=== PATIENT | male | born 1955 | race Caucasian/White ===

== ENCOUNTER 2024-07-16 10:40 | Inpatient (IN) | payer MEDICARE, SELFPAY ==
[2024-07-16] VITALS (16 sets, daily range): BP systolic 114–154; BP diastolic 53–108; PULSE 80–100; RESP 16–25; TEMP 36.2–36.8; O2SAT 93–100; BMI 21.5
--- NOTE | ~2024-07-16 | CT_ITS ---
EXAMINATION: CT abdomen pelvis w con DATE: 07/16/2024 13:13 INDICATION: Gastrointestinal hemorrhage. TECHNIQUE: Computed tomography (CT) of the abdomen and pelvis was performed with 100 mL Omnipaque 350 intravenous contrast. Automated exposure control and iterative reconstruction technique were employe d. The dose-length product was 359.02 mGy-cm. COMPARISON: None. FINDINGS: There is mild emphysema. There are small pleural effusions, right worse than left. There is mild atelectasis bilaterally. Calcified right lung nodules are consistent with old granulomatous dis ease. There is left atrial enlargement of the heart. There are changes of mitral valve replacement. T here are coronary artery calcifications. No pericardial effusion. The liver, gallbladder, spleen, and adrenal glands are normal. There is a calcification the pancreas, consistent with chronic pancreatit is. There is severe atrophy of left kidney. There are cysts in the kidneys measuring up to 18 mm on t he right. There is calcified atherosclerosis of the aorta and many of the other arteries. 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 There is a 2.2 cm fusiform aneurysm of right common femoral artery. There is a 3.0 cm fusiform aneurysm of le ft common femoral artery. 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 There is a 2.5 cm fusiform aneurysm of right common iliac artery. There is total occlusion of the internal linda ac arteries. There is a 10.4 cm fat-containing mass of mixed attenuation in the right inguinal canal and scrotum. There are no dilated loops of bowel. There are no pathologically enlarged lymph nodes. T here is no free intraperitoneal fluid. There is a total right hip arthroplasty. There is severe lower lumbar spondylosis. There is mild chronic anterior wedging of multiple thoracic vertebral bodies. IMPRESSION: 1. Small pleural effusions. 2. 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 Aneurysms of the iliac and femoral arteries. 3. 10.4 cm fat-containing mass of mixed attenuation in the right inguinal canal and scrotum, consiste nt with a hernia versus liposarcoma. Reviewed, dictated and finalized at location A. IMPRESSION: 1. Small pleural effusions. 2. 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 Aneurysms of the iliac and fem oral arteries. 3. 10.4 cm fat-containing mass of mixed attenuation in the right inguinal canal and scrotum, consistent with a hernia versus liposarcoma.
--- NOTE | ~2024-07-16 | XR_ITS ---
XR chest 1V portable Ordering provider: Christy Tinoco MD History: 69 years Male with . shortness of breath . Comparison: July 16, 2024 FINDINGS: MEDIASTINUM: The cardiac silhouette is slightly enlarged. Postoperative changes in the mediastinum an d bib. Congestive bib. LUNGS: No effusions or pneumothorax. Opacification in the right lung base which is increased compared to previous study. Prominent markings in the left lower lobe. Interstitial changes seen bilaterally. A rounded opacity seen in the right lower lobe area laterally which may be focal pneumonia cannot be excluded but nodules or healing rib fractures should be considered. OTHER: No free air under the diaphragm. IMPRESSION: Right lower lobe pneumonia. Follow-up to resolution advised. Underlying pulmonary edema is not exclud ed. Reviewed, dictated and finalized at location A. IMPRESSION: Right lower lobe pneumonia. Follow-up to resolution advised. Underlying pulmona ry edema is not excluded.
--- NOTE | ~2024-07-16 | XR_ITS ---
EXAMINATION: XR chest 1V portable DATE: 07/16/2024 11:10 INDICATION: Dyspnea TECHNIQUE: frontal view of the chest was obtained. COMPARISON: None FINDINGS: Mild interstitial and airspace opacities in the bilateral lower lung zones, right greater than left. No pleural effusion or pneumothorax. Borderline heart size accounting for AP technique. Median sterno erasto wires and prior cardiac valve repair either mitral or tricuspid. IMPRESSION: 1. Mild opacities at the bilateral lower lung zones, right greater than left which could represent pn eumonia, atelectasis, mild pulmonary edema or some combination thereof. Reviewed, dictated and finalized at location B. IMPRESSION: 1. Mild opacities at the bilateral lower lung zones, right greater than left wh ich could represent pneumonia, atelectasis, mild pulmonary edema or some combin ation thereof.
--- NOTE | 2024-07-16 10:48 | ECG_ITS ---
Test Date: 2024-07-16 11:26:59 Measurements Intervals [place] Rate: 88 P: 0 GA: 0 QRS: -42 QRSD: 110 T: 130 QT: 376 QTc: 457 Interpretive Statements ATRIAL FIBRILLATION LEFT AXIS DEVIATION INTRAVENTRICULAR CONDUCTION DELAY DELAYED PRECORDIAL R/S TRANSITION ST-T WAVE ABNORMALITY IN LAT/HIGH LAT LEADS- CONSIDER ISCHEMIA ABNORMAL ECG No previous ECG available for comparison Electronically Signed On 07-16-2024 11:59:56 CDT by Catarino Pradhan D.O.
[2024-07-16 11:05] LABS: Basophils Percent Auto 0.4 % (0.2-1.2); Eosinophils Percent Auto 0.1 % (0-4.4); Immature Granulocyte Absolute 0.06 K/mm3 (0.00-0.031); Immature Granulocyte Percent A 0.8 % (0-0.5); Lymphocytes Absolute Auto 0.74 K/mm3 (0.9-3.2); Lymphocytes Percent Auto 9.3 % (18.3-44.2); Mean Corpuscular Volume 89.1 fl (80-100); Mean Platelet Volume 10.2 fl (7.4-10.4); Monocytes Absolute Auto 0.6 K/mm3 (0.1-0.6); Monocytes Percent Auto 7.8 % (2.6-8.5); Neutrophils Absolute Auto 6.5 K/mm3 (1.3-6.7); Neutrophils Percent Auto 81.6 % (45.5-73.1); Platelet Count Result 208 k/mm3 (150-375); Red Blood Count 1.84 M/mm3 (4.6-6.20); Red Cell Distribution Width 23.9 % (11.5-14.5)
[2024-07-16 11:12] LABS: Hematocrit 16.4 % (42.0-52.0); Hemoglobin 4.6 g/dL (14.0-18.0)
[2024-07-16 11:20] LABS: Partial Thromboplastin Time 62.6 Seconds (22.3-36.8); Prothrombin Time 85.9 Seconds (11.1-14.7)
[2024-07-16 11:22] LABS: Alanine Aminotransferase 10 U/L (6-50); Albumin Level 3.2 g/dL (3.5-5.1); Alkaline Phosphatase 79 U/L (38-126); Anion Gap 12 mmol/L (4-12); Aspartate Amino Transferase 14 U/L (17-59); Bilirubin,Total 0.6 mg/dL (0.2-1.3); Blood Urea Nitrogen 51 mg/dL (9-20); Calcium 8.2 mg/dL (8.4-10.2); Carbon Dioxide 17 mmol/L (22-30); Chloride 106 mmol/L (98-107); Estimated CRCL calculation 36 ml/min; Estimated Glomerular Filt Rate 38; Glucose 141 mg/dL (65-110); Potassium 4.5 mmol/L (3.4-5.0); Sodium 135 mmol/L (137-145)
[2024-07-16 11:30] LABS: Anisocytosis 2+; Microcytosis 1+ (NORMAL); Platelet Estimate Adequate (Adequate); Polychromasia 1+
[2024-07-16 11:31] LABS: Burr Cells 1+; Hypochromasia 2+
[2024-07-16 11:32] LABS: Schistocytes Rare
[2024-07-16 11:36] LABS: INR 11.1; NT Pro B Type Natriuretic Pept 8420 pg/mL (19.9-100); Troponin I 0.091 ng/mL (0.000-0.034)
[2024-07-16] MEDS: PANTOPRAZOLE SODIUM IV 40 MG VIAL 80 MG IV PUSH (11:40)
[2024-07-16 11:41] LABS: SARS-CoV-2 RNA PCR Negative (Negative)
[2024-07-16] MEDS: PHYTONADIONE ADULT INJ 10 MG in DEXTROSE 5% IN WATER 50 ML 100 MG IVPB (11:58)
[2024-07-16] MEDS: HUMAN PROTHROMBIN COMPLEX(PCC) 3,500 UNITS in PREMIXIV 0 ML 504 UNITS IV CONT (12:25)
[2024-07-16] MEDS: SODIUM CHLORIDE 0.9% IV 250 ML 30 ML IV CONT (13:21)
[2024-07-16] MEDS: TUBING, BLOOD PLUM PUMP TUBING 1 EACH XX ×2 (13:21→15:47)
[2024-07-16] MEDS: SODIUM CHLORIDE 0.9% IV 100 ML 999 ML (15:48)
--- NOTE | 2024-07-16 16:42 | PC.NURSE ---
Superintendent Circus called RN regarding H&H and troponin lab draws that haven't been drawn yet. Upon investigation RN had seen that these labs were ordered at 1244 in the ED, and had not been drawn prior to pt arriving to IMU. Rossana Sanchez NP notified of this fall-out from ED. New orders to draw H&H & troponin level after transfusion has completed.
--- NOTE | 2024-07-16 20:34 | PM.IMHP ---
H&P: HPI History of Present Illness Date/Time: 07/16/24 20:34 Chief Complaint: tarry stools Narrative: This is a 69-year-old male with past medical history significant PEG for gout, hypertension, dyslipidemia, atrial fibrillation, GERD, benign prostatic hyperplasia, mitral valve replacement. Patient presents to the emergency room due to having melena this has been ongoing for the last 3 months or so. Patient also having fatigue, dizziness, shortness of breath, palpitations, weight loss. EXAMINATION: XR chest 1V portable DATE: 07/16/2024 11:10 INDICATION: Dyspnea TECHNIQUE: frontal view of the chest was obtained. COMPARISON: None FINDINGS: Mild interstitial and airspace opacities in the bilateral lower lung zones, right greater than left. No pleural effusion or pneumothorax. Borderline heart size accounting for AP technique. Median sternotomy wires and prior cardiac valve repair either mitral or tricuspid. IMPRESSION: 1. Mild opacities at the bilateral lower lung zones, right greater than left which could represent pneumonia, atelectasis, mild pulmonary edema or some combination thereof. Review of Systems Review of Systems: tarry stool, dizziness, fatigue PMFSH Surgical History Surgical History H/O mitral valve replacement 2013 Family History Family History Father Heart problem Cerebrovascular accident Mother Alzheimer dementia Social History Social History Smoking packs per day: 0.5 Smoking cigarettes per day: 10.0 Years smoked: 53 Smoking pack-years: 26.50 Smoking status: Current every day smoker Tobacco type: cigarettes Alcohol intake: former Drinks per week: 5 Substance use: never Substance use type: does not use Do You Feel Safe in your Home?: Yes Lack of Transportation: No Lack of Food: Never True Current Housing: I Have Housing Concerned About Future Housing: No Difficulty Paying Gas/Electric Bills: No Difficulty Paying for Meds: No Currently Unemployed: No Education: High School Diploma/GED Difficulty w/ Childcare or Family Care: No Spiritual care concerns: No Meds Home Medications and Allergies Home Medications Medication Instructions Recorded Confirmed Type amlodipine 5 mg tablet 5 mg PO DAILY #90 tabs 04/29/24 07/16/24 Rx atorvastatin 80 mg tablet 80 mg PO DAILY 04/29/24 07/16/24 History digoxin 125 mcg (0.125 mg) tablet 125 mcg PO DAILY #90 tabs 04/29/24 07/16/24 Rx folic acid 1 mg tablet 1 mg PO DAILY 04/29/24 07/16/24 History metoprolol succinate 100 mg 100 mg PO DAILY #90 tabs 04/29/24 07/16/24 Rx tablet,extended release 24 hr spironolactone 25 mg tablet 25 mg PO DAILY 04/29/24 07/16/24 History tamsulosin 0.4 mg capsule 0.4 mg PO QHS #90 caps 04/29/24 07/16/24 Rx thiamine HCl (vitamin B1) 100 mg 50 mg PO DAILY 04/29/24 07/16/24 History tablet allopurinol 100 mg tablet 50 mg PO DAILY #90 tabs 06/03/24 07/16/24 Rx hydroxyzine HCl 50 mg tablet 50 mg PO QID PRN itching #120 tabs 06/03/24 07/16/24 Rx pantoprazole 40 mg tablet,delayed 40 mg PO QAM #90 tabs 06/03/24 07/16/24 Rx release ferrous sulfate 325 mg (65 mg 325 mg PO DAILY #30 tabs 06/15/24 07/16/24 Rx iron) tablet (Iron (ferrous sulfate)) trazodone 50 mg tablet 50 mg PO QHS PRN sleep #90 tabs 06/15/24 07/16/24 Rx warfarin 3 mg tablet 3 mg PO DAILY #90 tabs 06/15/24 07/16/24 Rx Allergies Allergy/AdvReac Type Severity Reaction Status Date / Time No Known Allergies Allergy Unverified 06/15/24 15:15 Vital Signs Vital Signs - 24 hr 07/16/24 10:41 07/16/24 11:43 07/16/24 11:44 Temperature 97.6 F Pulse Rate 80 91 Respiratory Rate 16 25 H Blood Pressure 147/108 H 154/81 H Pulse Oximetry 93 93 Oxygen Delivery Room Air 07/16/24 13:14 07/16/24 13:32 0
--- NOTE | 2024-07-16 21:01 | ED.GIBLEED ---
HPI - GI Bleed General Chief complaint: Shortness of Breath/Dyspnea Stated complaint: SOB with exertion Time Seen by Provider: 07/16/24 11:03 History of Present Illness HPI Narrative: 69-year-old male with a past medical history significant for previous GI bleeding, atrial fibrillation on warfarin, hypertension, hyperlipidemia. He presents today via EMS for concerns of difficulty in breathing. He states he is having dyspnea with exertion for the last few days. States he has been having dark tarry stools for the last month. He was recently admitted to another outside facility for several day hospital for similar findings and was found to have an GI bleed and anemia. According to the patient he had upper and lower endoscopy which did not show any significant bleeding and he is not sure exactly what happened during his hospital stay but he knows has not received any blood transfusions although he was close according to himself. Since his discharge he was taking iron supplementation but has not followed up with an outpatient doctor yet. Patient attributes his dark tarry stools to the iron supplementation. No blood red blood per rectum denies any abdominal pain. No chest pain, nausea, vomiting. Denies any trauma or recent injuries. Still endorses taking his warfarin but has not had his INR checked recently. Related Data Home Medications Medication Instructions Recorded Confirmed atorvastatin 80 mg tablet 80 mg PO DAILY 04/29/24 07/16/24 folic acid 1 mg tablet 1 mg PO DAILY 04/29/24 07/16/24 spironolactone 25 mg tablet 25 mg PO DAILY 04/29/24 07/16/24 thiamine HCl (vitamin B1) 100 mg 50 mg PO DAILY 04/29/24 07/16/24 tablet Allergies Allergy/AdvReac Type Severity Reaction Status Date / Time No Known Allergies Allergy Unverified 06/15/24 15:15 Review of Systems Review of Systems: As reviewed above in HPI [facility] Surgical History Surgical History H/O mitral valve replacement 2013 Family History Family History Father Heart problem Cerebrovascular accident Mother Alzheimer dementia Social History Social History Smoking packs per day: 0.5 Smoking cigarettes per day: 10.0 Years smoked: 53 Smoking pack-years: 26.50 Smoking status: Current every day smoker Tobacco type: cigarettes Alcohol intake: former Drinks per week: 5 Substance use: never Substance use type: does not use Do You Feel Safe in your Home?: Yes Lack of Transportation: No Lack of Food: Never True Current Housing: I Have Housing Concerned About Future Housing: No Difficulty Paying Gas/Electric Bills: No Difficulty Paying for Meds: No Currently Unemployed: No Education: High School Diploma/GED Difficulty w/ Childcare or Family Care: No Spiritual care concerns: No Exam Narrative: GENERAL: [Well-appearing, well-nourished, and in no acute distress.] HEAD: [Normocephalic, atraumatic.] EYES: [PERRLA and EOMI.] Conjunctiva pallor noted ENT: Nares clear, no rhinorrhea or epistaxis. Mucous membranes moist. NECK: Supple. CHEST: [Clear to auscultation. No respiratory distress.] HEART: [Regular rate and rhythm]. No murmur heard. [Normal peripheral pulses.] ABDOMEN: [Soft, nondistended], [nontender], [No rigidity or guarding] genitourinary examination reveals a very large inguinal hernia on the right side. Nontender to palpation, no overlying skin changes. Patient states this is chronic and not new, currently being evaluated for potential malignancy outpatient. EXTREMITIES: Normal range of motion. [No edema.] SKIN: Warm, dry, no rash. NEURO: [No focal deficits]. Alert and oriented [x3.] PSYCH: [Normal mood and affect.] Course Vital Signs Vital signs: Vital Signs Temperature 36.4 C 07/16/24 10:41 Pulse Rate
[2024-07-16 21:16] LABS: Hemoglobin 7.1 g/dL (14.0-18.0)
[2024-07-16 21:42] LABS: Troponin I 0.079 ng/mL (0.000-0.034)
[2024-07-17] VITALS (22 sets, daily range): BP systolic 110–157; BP diastolic 65–104; PULSE 88–139; RESP 16–29; TEMP 36.3–37.3; O2SAT 90–99
[2024-07-17 00:36] LABS: Troponin I 0.093 ng/mL (0.000-0.034)
[2024-07-17] MEDS: hydrOXYzine HCL 25 MG TABLET 50 MG PO ×2 (00:43→20:27)
[2024-07-17] MEDS: TAMSULOSIN HCL 0.4 MG CAPSULE PO ×2 (00:43→20:26)
[2024-07-17] MEDS: traZODone HCL 50 MG TABLET PO ×2 (00:43→20:26)
[2024-07-17] MEDS: NICOTINE (*PBKC) 21 MG PATCH 1 PATCH TRANSDERM ×2 (00:47→12:09)
[2024-07-17 07:44] LABS: INR 1.2; Prothrombin Time 15.2 Seconds (11.1-14.7)
--- NOTE | 2024-07-17 09:57 | PC.NURSE ---
To GI Lab per [wheelchair ]. Report given to [ROBERTO Ly ].
--- NOTE | 2024-07-17 10:00 | SUR.PREOP ---
No abx in pre-op per Dr. Savage.
[2024-07-17] MEDS: LACTATED RINGERS 1,000 ML 150 ML IV CONT (10:15)
--- NOTE | 2024-07-17 10:18 | WPDANESEPPF ---
Anes - Initial Pre Proc Eval Procedure: Operation Date: 07/17/24 15:30 Proposed Procedures p Esophagogastroduodenoscopy - Glen Leyva MD Date/Time: 07/17/24 10:18 Surgeon: Red Kaminski MD Pre Op Diagnosis: GI Bleed Patient Data Age: 69 Gender: M Height: 1.83 m Weight: 72.8 kg Last Vital Signs Temp 36.4 C 07/17/24 10:11 Pulse 91 07/17/24 10:11 Resp 19 07/17/24 10:11 BP 157/104 H 07/17/24 10:11 Pulse Ox 98 07/17/24 10:11 O2 Del Method Room Air 07/17/24 10:11 Allergies Allergy/AdvReac Type Severity Reaction Status Date / Time No Known Allergies Allergy Unverified 07/17/24 10:09 Home Medications Medication Instructions Recorded Confirmed Type amlodipine 5 mg tablet 5 mg PO DAILY #90 tabs 04/29/24 07/16/24 Rx atorvastatin 80 mg tablet 80 mg PO DAILY 04/29/24 07/16/24 History digoxin 125 mcg (0.125 mg) tablet 125 mcg PO DAILY #90 tabs 04/29/24 07/16/24 Rx folic acid 1 mg tablet 1 mg PO DAILY 04/29/24 07/16/24 History metoprolol succinate 100 mg 100 mg PO DAILY #90 tabs 04/29/24 07/16/24 Rx tablet,extended release 24 hr spironolactone 25 mg tablet 25 mg PO DAILY 04/29/24 07/16/24 History tamsulosin 0.4 mg capsule 0.4 mg PO QHS #90 caps 04/29/24 07/16/24 Rx thiamine HCl (vitamin B1) 100 mg 50 mg PO DAILY 04/29/24 07/16/24 History tablet allopurinol 100 mg tablet 50 mg PO DAILY #90 tabs 06/03/24 07/16/24 Rx hydroxyzine HCl 50 mg tablet 50 mg PO QID PRN itching #120 tabs 06/03/24 07/16/24 Rx pantoprazole 40 mg tablet,delayed 40 mg PO QAM #90 tabs 06/03/24 07/16/24 Rx release ferrous sulfate 325 mg (65 mg 325 mg PO DAILY #30 tabs 06/15/24 07/16/24 Rx iron) tablet (Iron (ferrous sulfate)) trazodone 50 mg tablet 50 mg PO QHS PRN sleep #90 tabs 06/15/24 07/16/24 Rx warfarin 3 mg tablet 3 mg PO DAILY #90 tabs 06/15/24 07/16/24 Rx Laboratory Tests 07/16/24 07/16/24 07/16/24 10:56 11:40 21:01 WBC 8.0 K/mm3 (4.5-10.0) RBC 1.84 L M/mm3 (4.6-6.20) Hgb 4.6 L* g/dL 7.1 L g/dL (14.0-18.0) (14.0-18.0) Hct 16.4 L* % 22.0 L % (42.0-52.0) (42.0-52.0) MCV 89.1 fl (80-100) MCH 25.0 L pg (26-34) MCHC 28.0 L g/dl (32-36) RDW 23.9 H % (11.5-14.5) Plt Count 208 k/mm3 (150-375) MPV 10.2 fl (7.4-10.4) Immature Gran % (Auto) 0.8 H % (0-0.5) Neut % (Auto) 81.6 H % (45.5-73.1) Lymph % (Auto) 9.3 L % (18.3-44.2) [facility] % (Auto) 7.8 % (2.6-8.5) Eos % (Auto) 0.1 % (0-4.4) Baso % (Auto) 0.4 % (0.2-1.2) Lymph # (Auto) 0.74 L K/mm3 (0.9-3.2) [facility] # (Auto) 0.6 K/mm3 (0.1-0.6) Eos # (Auto) 0.0 K/mm3 (0-0.3) Baso # (Auto) 0.0 K/mm3 (0.0-0.1) Abs Immat Gran (auto) 0.06 H K/mm3 (0.00-0.031) Absolute Neuts (auto) 6.5 K/mm3 (1.3-6.7) Absolute Nucleated RBC 0.000 K/mm3 (0.0-0.012) Nucleated RBC % 0.0 % (0.0-0.2) Platelet Estimate Adequate (Adequate) Polychromasia 1+ Hypochromasia 2+ Anisocytosis 2+ Microcytosis 1+ (NORMAL) Lenin Cells 1+ Schistocytes Rare PT 85.9 H Seconds (11.1-14.7) INR 11.1 H* APTT 62.6 H Seconds (22.3-36.8) D-Dimer 0.80 H ug/mL (<0.48) Sodium 135 L mmol/L (137-145) Potassium 4.5 mmol/L (3.4-5.0) Chloride 106 mmol/L (98-107) Carbon Dioxide 17 L mmol/L (22-30) Anion Gap 12 mmol/L (4-12) BUN 51 H mg/dL (9-20) Creatinine 1.80 H mg/dL (0.7-1.3) Estim Creat Clear Calc 36 ml/min Estimated GFR 38 L (59 - ) Glucose 141 H mg/dL (65-110) Calcium 8.2 L mg/dL (8.4-10.2) Total Bilirubin 0.6 mg/dL (0.2-1.3) AST 14 L U/L
--- NOTE | 2024-07-17 10:35 | WPDGICN ---
Assessment and Plan Assessment and plan (1) GI (gastrointestinal bleed): Code(s): K92.2 - Gastrointestinal hemorrhage, unspecified Status: Acute Assessment and Plan: probably spontaneous slow bleeding due to supratherapeutic inr similar [id number], egd and colonoscopy unremarkable will proceed with egd to check if ulcer, avm or signs of bleeding but most importantly his INR will need to be monitored closely and keep at target otherwise will have similar episodes (2) Symptomatic anemia: Code(s): D64.9 - Anemia, unspecified Status: Acute Assessment and Plan: s/p blood transfusion protonix (3) Coumadin toxicity: Code(s): T45.511A - Poisoning by anticoagulants, accidental (unintentional), initial encounter Status: Acute Assessment and Plan: reversed given gib (4) Scrotal mass: Code(s): N50.89 - Other specified disorders of the male genital organs Status: Acute Assessment and Plan: by urology (5) H/O mitral valve replacement: Code(s): Z95.2 - Presence of prosthetic heart valve Status: Acute Assessment and Plan: needs chronic anticoagulation but needs close monitoring (6) Atrial fibrillation: Code(s): I48.91 - Unspecified atrial fibrillation Status: Acute GI Consult Note Consult date/time: 07/17/24 10:35 Reason for consult: acute on chronic anemia, melena, coumadin toxicity HPI: Reese Terrell is a 69 year old male with h/o MVR, Afib on coumadin, HTN who had symptomatic anemia 02/2024- egd and colonoscopy negative at another hospital (records reviewed). He has been taking daily iron because TRANG, last hgb 10 and his stool has been dark. Here with progressive shortness of breath and fatigue, palpitations. Hgb 4.6, INR 11 and received vitamin K, admitted to hospital, given IV protonix. He received blood transfusion. 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 Aneurysms of the iliac and femoral arteries. 10.4 cm fat-containing mass of mixed attenuation in the right inguinal canal and scrotum, consistent with a hernia versus liposarcoma. Review of Systems Constitutional: Constitutional: Reports fatigue and Reports weakness Eyes: Eyes: Denies blurry vision ENT: Reports Normal hearing present Cardiovascular: Cardiovascular: Reports palpitations Respiratory: Respiratory: Reports dyspnea on exertion Gastrointestinal: Gastrointestinal: Reports melena and Denies bloating Genitourinary: Genitourinary: Denies urinary frequency Musculoskeletal: Musculoskeletal: Denies myalgias Integumentary/Breasts: Skin/Breast: Denies rash Neurologic: Denies Abnormal speech present [facility] Past Medical History Medical History (Updated 07/17/24 @ 13:58 by Glen Leyva MD) BPH (benign prostatic hyperplasia) Coumadin toxicity Symptomatic anemia Surgical History Surgical History (Updated 07/17/24 @ 13:58 by Glen Leyva MD) H/O mitral valve replacement 2013 Family History Family History Father Heart problem Cerebrovascular accident Mother Alzheimer dementia Social History Social History Smoking packs per day: 0.5 Smoking cigarettes per day: 10.0 Years smoked: 53 Smoking pack-years: 26.50 Smoking status: Current every day smoker Tobacco type: cigarettes Alcohol intake: former Drinks per week: 5 Substance use: never Substance use type: does not use Do You Feel Safe in your Home?: Yes Lack of Transportation: No Lack of Food: Never True Current Housing: I Have Housing Concerned About Future Housing: No Difficulty Paying Gas/Electric Bills: No Difficulty Paying for Meds: No Currently Unemployed: No Education: High School Diploma/GED Difficulty w/ Childcare or Family Care: No Yajaira
--- NOTE | 2024-07-17 11:18 | PC.NURSE ---
Returned from GI Lab via wheelchair. Report received from GI nurse. No issues noted.
[2024-07-17 11:44] LABS: Hematocrit 22.5 % (42.0-52.0); Hemoglobin 7.1 g/dL (14.0-18.0); Mean Corpuscular HGB Conc 31.6 g/dl (32-36); Mean Corpuscular Hemoglobin 27.8 pg (26-34); Mean Corpuscular Volume 88.2 fl (80-100); Platelet Count Result 191 k/mm3 (150-375); Red Blood Count 2.55 M/mm3 (4.6-6.20); Red Cell Distribution Width 19.9 % (11.5-14.5); White Blood Count 8.2 K/mm3 (4.5-10.0)
[2024-07-17] MEDS: DIGOXIN TAB 125 MCG TABLET PO (12:07)
[2024-07-17] MEDS: ATORVASTATIN 40 MG TABLET 80 MG PO (12:07)
[2024-07-17] MEDS: PANTOPRAZOLE 40 MG TABLET PO (12:08)
[2024-07-17] MEDS: THIAMINE HCL 50 MG TABLET PO (12:08)
[2024-07-17] MEDS: allopurinoL 50 MG TABLET PO (12:08)
[2024-07-17] MEDS: FOLIC ACID 1 MG TABLET PO (12:08)
[2024-07-17 12:15] LABS: Alanine Aminotransferase 9 U/L (6-50); Albumin Level 3.4 g/dL (3.5-5.1); Alkaline Phosphatase 80 U/L (38-126); Anion Gap 9 mmol/L (4-12); Aspartate Amino Transferase 15 U/L (17-59); Blood Urea Nitrogen 53 mg/dL (9-20); Calcium 8.6 mg/dL (8.4-10.2); Carbon Dioxide 19 mmol/L (22-30); Chloride 106 mmol/L (98-107); Estimated CRCL calculation 37 ml/min; Estimated Glomerular Filt Rate 38; Glucose 98 mg/dL (65-110); Potassium 4.2 mmol/L (3.4-5.0); Sodium 134 mmol/L (137-145)
--- NOTE | 2024-07-17 12:59 | WPDURCON ---
Assessment and Plan Assessment and plan (1) Scrotal mass: Code(s): N50.89 - Other specified disorders of the male genital organs Status: Acute Assessment and Plan: 10.4 cm fat containing mass of right inguinal canal and scrotum consistent with hernia versus liposarcoma. Reviewed imaging with Dr. Guillen. Not consistent with urologic issue and no testicular concerns. Would recommend further evaluation by General surgery. Given the chronicity of these issues, this could likely be completed as an outpatient. He may be better served at a tertiary care facility. No need for urologic follow-up at this time. Urology Consult Note HPI Date Seen: 07/17/24 Requesting Physician: Red Kaminski MD Primary Care Provider: Marianna Cisneros APRN Consult Narrative Narrative: Reese Terrell is a 69 year old male with a history of BPH on tamsulosin who is being seen in consultation for left scrotal mass. The patient is currently admitted for GI bleed and anemia. On arrival, a CT of his abdomen/pelvis with contrast was completed which demonstrated a 10.4 cm fat containing mass of mixed attenuation in the right inguinal canal and scrotum consistent with hernia versus liposarcoma. The patient reports that he has had right scrotal swelling for 4 years which has been largely unchanged though has gradually gotten larger. He denies any acute pain or other issues. States that it is uncomfortable with walking or sitting but otherwise has been very stable. He did not have any evaluation of this issue for many years, though reports about 6 months ago while living in [place] he was seen for these symptoms and had a scrotal ultrasound completed. It sounds as though he was referred to a tertiary care facility in [place] to further evaluate but he did not follow up due to transportation issues. He has now moved to this area and has been here for about 2-3 months. He recently established with a primary care provider and states that he has been trying to get some kind of follow-up for these issues but is not making any progress in doing so. He denies dysuria, hematuria, incomplete emptying, urgency, frequency, penile discharge, penile pain, scrotal wounds or drainage. He denies any personal or family history of testicular cancer or other malignancy. Review of Systems Review of Systems: All systems reviewed & are unremarkable except as noted in HPI and below PMFSH Past Medical History Medical History (Updated 07/17/24 @ 13:09 by Heidy Enrique PA-C) BPH (benign prostatic hyperplasia) Surgical History Surgical History H/O mitral valve replacement 2013 Family History Family History Father Heart problem Cerebrovascular accident Mother Alzheimer dementia Social History Social History Smoking packs per day: 0.5 Smoking cigarettes per day: 10.0 Years smoked: 53 Smoking pack-years: 26.50 Smoking status: Current every day smoker Tobacco type: cigarettes Alcohol intake: former Drinks per week: 5 Substance use: never Substance use type: does not use Do You Feel Safe in your Home?: Yes Lack of Transportation: No Lack of Food: Never True Current Housing: I Have Housing Concerned About Future Housing: No Difficulty Paying Gas/Electric Bills: No Difficulty Paying for Meds: No Currently Unemployed: No Education: High School Diploma/GED Difficulty w/ Childcare or Family Care: No Spiritual care concerns: No Meds Home Medications and Allergies Home Medications Medication Instructions Recorded Confirmed Type amlodipine 5 mg tablet 5 mg PO DAILY #90 tabs 04/29/24 07/16/24 Rx atorvastatin 80 mg tablet 80 mg PO DAILY 04/29/24 07/16/24 History digoxin 125 mcg (0.125 mg) tablet 125 mcg PO DAILY #90 tabs
[2024-07-17 14:22] LABS: Hematocrit 23.1 % (42.0-52.0); Hemoglobin 7.1 g/dL (14.0-18.0)
[2024-07-17] MEDS: IRON SUCROSE COMPLEX 200 MG, IRON SUCROSE COMPLEX 100 MG in SODIUM CHLORIDE 0.9% IV 250 ML 176.67 MG IVPB (15:13)
[2024-07-17] MEDS: FUROSEMIDE INJ 40 MG/4 ML VIAL 20 MG IV PUSH (15:30)
--- NOTE | 2024-07-17 16:09 | ECG_ITS ---
Test Date: 2024-07-17 16:25:16 Measurements Intervals [place] Rate: 126 P: 0 WV: 0 QRS: -54 QRSD: 110 T: 135 QT: 304 QTc: 442 Interpretive Statements ATRIAL FIBRILLATION WITH RAPID VENTRICULAR RESPONSE LEFT ANTERIOR FASCICULAR BLOCK ST DEVIATION AND MODERATE T-WAVE ABNORMALITY, CONSIDER LAT/HIGH LAT ISCHEMIA BASELINE WANDER- I ABNORMAL ECG Compared to ECG 07/16/2024 11:26:59 HEART RATE HAS INCREASED Left anterior fascicular block now present Electronically Signed On 07-17-2024 18:53:39 CDT by Catarino Pradhan D.O.
--- NOTE | 2024-07-17 16:31 | PC.NURSE ---
1520: Pt's heart rate has increased to 120's-130's intermittently over the last hour. Pt having 5 beat runs of V-tach at times, but is asymptomatic. Pt now complaining of shortness of breath. MD notified by RN of pt's change in condition. New order for stat lactic, CXR, and 20mg IVP Furosemide. 1609: Pt is still complaining of shortness of breath with no change in heart rate. SpO2 96% on RA. RN notified MD and requested MD to come reassess pt. New order for 12-lead EKG 1629: MD to bedside. Pt's EKG reads Afib RVR. New order for Cardiology consult, Cardizem gtt, and magnesium level.
[2024-07-17] MEDS: dilTIAZem 100 MG/100 ML 100 MG/100 ML BAG IV CONT (16:56)
[2024-07-17 16:58] LABS: Magnesium 1.9 mg/dL (1.6-2.3)
[2024-07-17 17:00] LABS: Lactic Acid Reflex 1.4 mmol/L (0.7-2.0)
--- NOTE | 2024-07-17 17:58 | PM.IMPN ---
Progress Note: A&P Assessment and Plan (1) Scrotal mass: Code(s): N50.89 - Other specified disorders of the male genital organs Status: Acute Assessment and Plan: 10.4 cm fat containing mass of right inguinal canal and scrotum consistent with hernia versus liposarcoma. Patient was evaluated byu urologic and they noted condition is not a urologic issue patient will continue outpatient follow up (already working on it with his pPC (2) GI (gastrointestinal bleed): Code(s): K92.2 - Gastrointestinal hemorrhage, unspecified Status: Acute Assessment and Plan: From supratherapeutic INR s/p EGD and no findings noted INR is normal monitor GI following (3) Atrial fibrillation: Code(s): I48.91 - Unspecified atrial fibrillation Status: Acute Assessment and Plan: Patient on Digoxin at home with warfarin warfarin restarted Now in Afib RVR On Cardizem infusion and Metoprolol 12.5mg Bid started titrate Cardizem infusion (4) Coumadin toxicity: Code(s): T45.511A - Poisoning by anticoagulants, accidental (unintentional), initial encounter Status: Acute Assessment and Plan: INR 11.1 on admission now on 1.2 (5) Symptomatic anemia: Code(s): D64.9 - Anemia, unspecified Status: Acute Assessment and Plan: received 1 unit pRBC received 300 iron sucrose monitor H and H hb 7.1 monitor (6) Pneumonia: Code(s): J18.9 - Pneumonia, unspecified organism Status: Acute Assessment and Plan: CXR showed RLL pneumonia Blood culture and MRSA screen pending Started on Rocephin, Doxycycline adn Flagyl gentle rehydration with IVF monitor Plan DVT prophylaxis on SCDs and Warfarin Subjective Date/time seen: 07/17/24 17:58 Interval history: Comfortable at bedside however patient went into Afib RVR this afternoon and was started on Cardizem infusion Review of Systems Review of Systems: tarry stool, dizziness, fatigue All systems reviewed & are unremarkable except as noted in HPI and below Exam Narrative: General: alert and comfortable Eyes: EOMI, PERRLA ENNT External ears normal, Neck is supple, no masses, Respiratory systems: Clear to auscultation Cardiovascular S1, S2, normal rhythm, no murmur, rub, or gallop; no thrill or palpable murmurs on palpation. Gastrointestinal: soft, non-tender, and non-distended abdomen with no masses; BS present Skin: no rash, lesions, ulcerations, subcutaneous nodules or induration Musculoskeletal: no abnormality and no tenderness, normal ROM Neurologic: Alert and oriented x3, non focal : scrotal swelling Objective Data Vital Signs Vital Signs: Vital Signs - 24 hr 07/16/24 18:00 07/16/24 18:56 07/16/24 19:56 Temperature 98.0 F 98.3 F Pulse Rate 93 96 92 Respiratory Rate 20 16 Blood Pressure 141/62 H 133/78 Pulse Oximetry 97 95 Oxygen Delivery 07/16/24 20:00 07/16/24 20:00 07/16/24 22:00 Temperature Pulse Rate 100 100 Respiratory Rate Blood Pressure Pulse Oximetry Oxygen Delivery Room Air 07/17/24 00:00 07/17/24 00:00 07/17/24 00:00 Temperature 97.9 F Pulse Rate 107 H 116 H Respiratory Rate 16 Blood Pressure 145/71 H Pulse Oximetry 92 Oxygen Delivery Room Air 07/17/24 02:00 07/17/24 04:00 07/17/24 04:00 Temperature Pulse Rate 100 98 Respiratory Rate Blood Pressure Pulse Oximetry Oxygen Delivery Room Air 07/17/24 04:00 07/17/24 06:00 07/17/24 07:57 Temperature 97.4 F L 98.5 F Pulse Rate 101 H 107 H 102 H Respiratory Rate 18 20 Blood Pressure 130/88 117/73 Pulse Oximetry 95 93 Oxygen Delivery 07/17/24 08:00 07/17/24 10:11 07/17/24 08:00 Temperature 97.6 F Pulse Rate 105 H 91 Respiratory Rate 19 Blood Pressure 157/104 H Pulse Oximetry 98 Oxygen Delivery Room Air Room Air 07/17/24 10:43 07/17/24 10:51 07/17/24 10:57 [place]
[2024-07-17] MEDS: SODIUM CHLORIDE 0.9% IV 1,000 ML 70 ML IV CONT (18:59)
[2024-07-17 20:16] LABS: MRSA (PCR) NOT DETECTED (NOT DETECTE)
[2024-07-17] MEDS: METOPROLOL TARTRATE 12.5 MG TABLET PO (20:26)
[2024-07-17] MEDS: cefTRIAXone 2 GM/NS 100 ML 2 GM/100 ML BAG IVPB (20:26)
[2024-07-17] MEDS: DOXYCYCLINE 100 MG/NS 100 ML 100 MG/100 ML BAG IVPB (21:05)
[2024-07-17] MEDS: metroNIDAZOLE 500 MG/ISO 100ML 500 MG/100 ML BAG 100 MG IVPB (22:05)
[2024-07-18] VITALS (25 sets, daily range): BP systolic 107–147; BP diastolic 55–96; PULSE 70–117; RESP 17–28; TEMP 36.1–37.1; O2SAT 90–96
[2024-07-18 04:31] LABS: Basophils Absolute Auto 0.1 K/mm3 (0.0-0.1); Basophils Percent Auto 0.7 % (0.2-1.2); Eosinophils Absolute Auto 0.2 K/mm3 (0-0.3); Eosinophils Percent Auto 2.3 % (0-4.4); Hematocrit 21.6 % (42.0-52.0); Immature Granulocyte Absolute 0.03 K/mm3 (0.00-0.031); Immature Granulocyte Percent A 0.4 % (0-0.5); Lymphocytes Absolute Auto 0.72 K/mm3 (0.9-3.2); Lymphocytes Percent Auto 9.4 % (18.3-44.2); Mean Corpuscular HGB Conc 30.6 g/dl (32-36); Mean Corpuscular Hemoglobin 26.5 pg (26-34); Mean Corpuscular Volume 86.7 fl (80-100); Mean Platelet Volume 9.9 fl (7.4-10.4); Monocytes Absolute Auto 0.9 K/mm3 (0.1-0.6); Monocytes Percent Auto 11.6 % (2.6-8.5); Neutrophils Absolute Auto 5.8 K/mm3 (1.3-6.7); Neutrophils Percent Auto 75.6 % (45.5-73.1); Platelet Count Result 185 k/mm3 (150-375); Red Blood Count 2.49 M/mm3 (4.6-6.20); Red Cell Distribution Width 19.2 % (11.5-14.5); White Blood Count 7.7 K/mm3 (4.5-10.0)
[2024-07-18 04:32] LABS: Hemoglobin 6.6 g/dL (14.0-18.0)
[2024-07-18 04:59] LABS: Lactic Acid Reflex 0.9 mmol/L (0.7-2.0)
[2024-07-18 05:12] LABS: Alanine Aminotransferase 7 U/L (6-50); Albumin Level 3.2 g/dL (3.5-5.1); Alkaline Phosphatase 83 U/L (38-126); Anion Gap 10 mmol/L (4-12); Aspartate Amino Transferase 12 U/L (17-59); Bilirubin,Total 0.7 mg/dL (0.2-1.3); Blood Urea Nitrogen 40 mg/dL (9-20); Calcium 8.1 mg/dL (8.4-10.2); Carbon Dioxide 19 mmol/L (22-30); Chloride 105 mmol/L (98-107); Estimated CRCL calculation 39 ml/min; Estimated Glomerular Filt Rate 40; Glucose 108 mg/dL (65-110); Magnesium 1.7 mg/dL (1.6-2.3); Potassium 3.1 mmol/L (3.4-5.0); Sodium 134 mmol/L (137-145)
[2024-07-18] MEDS: metroNIDAZOLE 500 MG/ISO 100ML 500 MG/100 ML BAG 100 MG IVPB ×3 (05:45→22:10)
--- NOTE | 2024-07-18 07:36 | WPDANESPN ---
Anes - Prog Note Post-Op Date/Time: 07/18/24 07:36 Cardiovascular status: normal Respiratory status: normal Airway patency: baseline Mental status: baseline Post-Op hydration status: normal Vital Signs: Last Vital Signs Temp 36.8 C 07/18/24 04:00 Pulse 100 07/18/24 06:10 Resp 18 07/18/24 04:00 BP 112/76 07/18/24 06:10 Pulse Ox 90 07/18/24 04:00 O2 Del Method Room Air 07/18/24 04:00 Pain Score (VAS): 0/10 I/O: Intake & Output 07/17/24 07/17/24 07/18/24 15:59 23:59 07:59 Intake Total 200 830.3 480.9 Output Total 500 800 800 Balance -300 30.3 -319.1 Laboratory Tests 07/18/24 04:19 07/18/24 04:19 07/16/24 07/17/24 07/17/24 11:40 07:23 14:00 WBC 8.2 RBC 2.55 L Hgb 7.1 L 7.1 L Hct 22.5 L 23.1 L MCV 88.2 MCH 27.8 D MCHC 31.6 L RDW 19.9 H Plt Count 191 MPV 10.0 Immature Gran % (Auto) Neut % (Auto) Lymph % (Auto) [place] % (Auto) Eos % (Auto) Baso % (Auto) Lymph # (Auto) [place] # (Auto) Eos # (Auto) Baso # (Auto) Abs Immat Gran (auto) Absolute Neuts (auto) Absolute Nucleated RBC Nucleated RBC % PT 15.2 H D INR 1.2 Sodium 134 L Potassium 4.2 Chloride 106 Carbon Dioxide 19 L Anion Gap 9 BUN 53 H Creatinine 1.80 H Estim Creat Clear Calc 37 Estimated GFR 38 L Glucose 98 Lactic Acid Calcium 8.6 Magnesium Total Bilirubin 1.0 AST 15 L ALT 9 Alkaline Phosphatase 80 Total Protein 6.0 L Albumin 3.4 L Nasal MRSA (PCR) Crossmatch See Detail 07/17/24 07/17/24 07/17/24 16:21 16:27 18:58 WBC RBC Hgb Hct MCV MCH MCHC RDW Plt Count MPV Immature Gran % (Auto) Neut % (Auto) Lymph % (Auto) [place] % (Auto) Eos % (Auto) Baso % (Auto) Lymph # (Auto) [place] # (Auto) Eos # (Auto) Baso # (Auto) Abs Immat Gran (auto) Absolute Neuts (auto) Absolute Nucleated RBC Nucleated RBC % PT INR Sodium Potassium Chloride Carbon Dioxide Anion Gap BUN Creatinine Estim Creat Clear Calc Estimated GFR Glucose Lactic Acid 1.4 Calcium Magnesium 1.9 Total Bilirubin AST ALT Alkaline Phosphatase Total Protein Albumin Nasal MRSA (PCR) Not detected Crossmatch 07/18/24 04:19 WBC 7.7 RBC 2.49 L Hgb 6.6 L* Hct 21.6 L MCV 86.7 MCH 26.5 MCHC 30.6 L RDW 19.2 H Plt Count 185 MPV 9.9 Immature Gran % (Auto) 0.4 Neut % (Auto) 75.6 H Lymph % (Auto) 9.4 L [place] % (Auto) 11.6 H Eos % (Auto) 2.3 Baso % (Auto) 0.7 Lymph # (Auto) 0.72 L [place] # (Auto) 0.9 H Eos # (Auto) 0.2 Baso # (Auto) 0.1 Abs Immat Gran (auto) 0.03 Absolute Neuts (auto) 5.8 Absolute Nucleated RBC 0.000 Nucleated RBC % 0.0 PT INR Sodium 134 L Potassium 3.1 L Chloride 105 Carbon Dioxide 19 L Anion Gap 10 BUN 40 H D Creatinine 1.70 H Estim Creat Clear Calc 39 Estimated GFR 40 L Glucose 108 Lactic Acid 0.9 Calcium 8.1 L Magnesium 1.7 Total Bilirubin 0.7 AST 12 L ALT 7 Alkaline Phosphatase 83 Total Protein 6.0 L Albumin 3.2 L Nasal MRSA (PCR) Crossmatch Post-procedural complaints: none Patient Feedback: Patient satisfied with anesthetic care.
[2024-07-18] MEDS: FERROUS SULFATE 325 MG TABLET DR BY MOUTH (08:34)
[2024-07-18] MEDS: PANTOPRAZOLE 40 MG TABLET PO (08:34)
[2024-07-18] MEDS: allopurinoL 50 MG TABLET PO (08:34)
[2024-07-18] MEDS: THIAMINE HCL 50 MG TABLET PO (08:34)
[2024-07-18] MEDS: FOLIC ACID 1 MG TABLET PO (08:34)
[2024-07-18] MEDS: ATORVASTATIN 40 MG TABLET 80 MG PO (08:35)
[2024-07-18] MEDS: hydrOXYzine HCL 25 MG TABLET 50 MG PO ×2 (08:35→20:25)
[2024-07-18] MEDS: DIGOXIN TAB 125 MCG TABLET PO (08:35)
[2024-07-18] MEDS: NICOTINE (*PBKC) 21 MG PATCH 1 PATCH TRANSDERM (08:36)
[2024-07-18] MEDS: DOXYCYCLINE 100 MG/NS 100 ML 100 MG/100 ML BAG IVPB ×2 (08:36→20:54)
[2024-07-18] MEDS: METOPROLOL TARTRATE 25 MG TABLET PO (08:39)
--- NOTE | 2024-07-18 10:13 | PM.CNCAR ---
Assessment and Plan Assessment and plan (1) H/O mitral valve replacement: Code(s): Z95.2 - Presence of prosthetic heart valve Status: Acute (2) Coumadin toxicity: Code(s): T45.511A - Poisoning by anticoagulants, accidental (unintentional), initial encounter Status: Acute (3) Atrial fibrillation: Code(s): I48.91 - Unspecified atrial fibrillation Status: Acute (4) Hx of CABG: Code(s): Z95.1 - Presence of aortocoronary bypass graft Status: Acute Plan this is a 69-year-old man with a somewhat complex history, no recent follow-up here. We noted he has the bioprosthetic mitral valve replacement and vein graft to his RPDA and OM branch that were done 10 years ago. He also has atrial fibrillation which appears to be chronic at this time. In the setting of chronic atrial fib and profound anemia he as expected had rapid ventricular response upon arrival here. He is otherwise hemodynamically stable. I am going to recommend transitioning him back to his baseline regimen of metoprolol and digoxin for rate control since this has been effective for him prior to admission. The reason for his rapid ventricular response is the anemia, not a new cardiac issue. Anticoagulation should be discontinued at this time with the risks being much higher than the benefits given his profound, life-threatening bleeding. It is possible he could be a candidate for left atrial appendage occlusion procedure in the future and I did discuss this with him as well at some length. Will follow him with you while he is in the hospital but at this point I do not believe we need to be concerned about a new cardiac pathology. It is clear that he was open supratherapeutic in his INR but I do not believe we should be comfortable resuming anticoagulation in this setting Stevo Liu MD [facility] History of Present Illness History of Present Illness Consult date/time: 07/18/24 10:13 Reason For Visit: GI Bleed Narrative: This is a 69-year-old man who I am seeing at the request of the hospitalist to assist with management of his atrial fibrillation. The patient is unknown to me prior to this consultation. He was admitted to the hospital 2 days ago with apparent melanotic stool, GI bleeding and profound anemia with a hemoglobin of 4.6. He had super therapeutic INR, on Coumadin with an INR of 11 and this was reversed with vitamin K. he was also transfused red cell volume and was seen by GI customer relations consultant. His hemoglobin level improved to over 7 today it is down to 6.6 again. He is not having any active bleeding and appears to be comfortable at this time. The patient has a history of coronary disease, valvular heart disease and atrial fibrillation. He recently moved to this area from [place] and we do not have any recent records regarding his cardiac status other than an echocardiogram from December of this year from his physician in [place]. The patient has a history apparently dating back to September of 2014 when he was seen in the hospital elsewhere with mitral valve endocarditis he presented with a history of several months of illness weight loss fever and was found to have mitral valve endocarditis. 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 In any event he underwent surgery involving a 31 mm magna pericardial valve and a bypass operation with saphenous vein grafts placed to the 1st OM as well as to the DA. He did have atrial fibrillation following his surgery and pony edger was involved in his care who performed a cardioversion and had him on amiodarone as and systemic anticoagulation. The last time he saw the surgeon here in [place] was back in 2014 and at that time he was apparently in sinus rhythm. It sounds like in the intervening 9 years he
[2024-07-18] MEDS: METOPROLOL SUCCINATE EXT REL 50 MG TABCR PO (11:42)
[2024-07-18] MEDS: SODIUM CHLORIDE 0.9% IV 250 ML 30 ML IV CONT (11:44)
--- NOTE | 2024-07-18 13:17 | PM.IMPN ---
Progress Note: A&P Assessment and Plan (1) Scrotal mass: Code(s): N50.89 - Other specified disorders of the male genital organs Status: Acute Assessment and Plan: 10.4 cm fat containing mass of right inguinal canal and scrotum consistent with hernia versus liposarcoma. Patient was evaluated byu urologic and they noted condition is not a urologic issue patient will continue outpatient follow up (already working on it with his pPC (2) GI (gastrointestinal bleed): Code(s): K92.2 - Gastrointestinal hemorrhage, unspecified Status: Acute Assessment and Plan: From supratherapeutic INR s/p EGD and no findings noted INR is normal Patient stated he does not have means to go for regular INR check up, we will try to swtich him to [facility] accounts payable payroll coordinator consulted GI osman noted and appreciate his input (3) Atrial fibrillation: Code(s): I48.91 - Unspecified atrial fibrillation Status: Acute Assessment and Plan: Patient on Digoxin at home with warfarin Now rate controlled cardiology recommended discontinued anticoagulation and will evaluate for watchman device continue Digoxin and Metoprolol 25mg bid (4) Coumadin toxicity: Code(s): T45.511A - Poisoning by anticoagulants, accidental (unintentional), initial encounter Status: Acute Assessment and Plan: INR 11.1 on admission now on 1.2 no AC, for watchman device (5) Symptomatic anemia: Code(s): D64.9 - Anemia, unspecified Status: Acute Assessment and Plan: received 1 unit pRBC received 500 iron sucrose monitor H and H hb 6.6 transfuse 1 unit and 300mg IV iron monitor (6) Pneumonia: Code(s): J18.9 - Pneumonia, unspecified organism Status: Acute Assessment and Plan: CXR showed RLL pneumonia Blood culture and MRSA screen pending Day 2 on Rocephin, Doxycycline adn Flagyl monitor Plan DVT prophylaxis on SCDs, due to GI bleed Subjective Date/time seen: 07/18/24 13:17 Interval history: Comfortable at bedside Afib rate controlled however hb 6.6 today will monitor one more night Review of Systems Review of Systems: tarry stool, dizziness, fatigue All systems reviewed & are unremarkable except as noted in HPI and below Exam Narrative: General: alert and comfortable Eyes: EOMI, PERRLA ENNT External ears normal, Neck is supple, no masses, Respiratory systems: Clear to auscultation Cardiovascular S1, S2, normal rhythm, no murmur, rub, or gallop; no thrill or palpable murmurs on palpation. Gastrointestinal: soft, non-tender, and non-distended abdomen with no masses; BS present Skin: no rash, lesions, ulcerations, subcutaneous nodules or induration Musculoskeletal: no abnormality and no tenderness, normal ROM Neurologic: Alert and oriented x3, non focal : scrotal swelling Const: General: comfortable, no acute distress, well developed, alert, awake, average body habitus and underweight Nutritional Appearance: average body habitus and underweight Orientation/consciousness: patient oriented x3 Other: generalized pallor HENMT: Head: normal to inspection, normocephalic and atraumatic Ears: hearing grossly normal bilaterally Face/Nose/Sinus: normal facial exam Face and sinus: normal facial exam Eyes: General: appearance normal, both eyes and all related structures Pupils: Equal, round and reactive pupils present EOM: EOMs intact bilaterally Neck: Neck: full ROM, no lymphadenopathy and no JVD Thyroid: thyroid normal Lymphatic: no lymphadenopathy noted Resp: Effort & Inspection: normal respiratory effort and able to speak in complete sentences Auscultation: clear to auscultation bilaterally Cardio: Jugular venous distension: no JVD Rate: regular rate Rhythm: regular rhythm Heart sounds: S1 normal heart sound present and S2 normal heart sound present : General: Yes deferred Skin: Rashes: no rashes
--- NOTE | 2024-07-18 13:58 | WPDGIPROGNO ---
Progress Note: A&P Assessment and Plan (1) Symptomatic anemia: Code(s): D64.9 - Anemia, unspecified Status: Acute Assessment and Plan: egd normal probably spontaneous bleeding from coumadin toxicity (inr 11 on presentation), corrected now protonix daily keep hgb>7 will follow as needed (2) GI (gastrointestinal bleed): Code(s): K92.2 - Gastrointestinal hemorrhage, unspecified Status: Acute (3) Coumadin toxicity: Code(s): T45.511A - Poisoning by anticoagulants, accidental (unintentional), initial encounter Status: Acute Assessment and Plan: cardiology to decide if will need to be back on anticoagulation- this is second presentation with symptomatic anemia, recent colonoscopy negative (4) Atrial fibrillation: Code(s): I48.91 - Unspecified atrial fibrillation Status: Acute (5) Pneumonia: Code(s): J18.9 - Pneumonia, unspecified organism Status: Acute Subjective Date/time seen: 07/18/24 13:58 Interval history: egd normal yesterday getting one more unit prbc today Review of Systems Review of Systems: All systems reviewed & are unremarkable except as noted in HPI and below Exam Const: General: no acute distress HENMT: Face/Nose/Sinus: Normal nares present Eyes: General: appearance normal, both eyes and all related structures Neck: Neck: supple Resp: Auscultation: clear to auscultation bilaterally Cardio: Rate: regular rate Rhythm: regular rhythm GI: Inspection: non-distended GI Palp: Yes Soft to palpation and No Tenderness to palpation present (GI) Auscultation: normal bowel sounds : Other: rt scrotum edema Skin: Other: pallor Neuro: Speech: normal speech Motor exam (neuro): 5/5 motor strength present throughout Extrem: General: normal to inspection Psych: Mental Status: mental status grossly normal Objective Data Vital Signs Vital Signs: Vital Signs - 24 hr 07/17/24 14:00 07/17/24 16:00 07/17/24 16:00 Temperature 98.8 F Pulse Rate 113 H 130 H Respiratory Rate 22 H Blood Pressure 129/80 Pulse Oximetry 90 Oxygen Delivery Room Air 07/17/24 16:56 07/17/24 16:00 07/17/24 18:00 Temperature Pulse Rate 133 H 123 H 139 H Respiratory Rate Blood Pressure 129/80 131/65 Pulse Oximetry Oxygen Delivery 07/17/24 18:00 07/17/24 18:00 07/17/24 20:00 Temperature 99.1 F Pulse Rate 139 H 114 H 107 H Respiratory Rate 16 Blood Pressure 131/65 139/87 Pulse Oximetry 90 Oxygen Delivery 07/17/24 20:26 07/17/24 20:00 07/17/24 20:00 Temperature Pulse Rate 111 H 102 H Respiratory Rate Blood Pressure Pulse Oximetry Oxygen Delivery Room Air 07/17/24 22:00 07/17/24 23:59 07/18/24 00:00 Temperature 97.7 F Pulse Rate 88 104 H Respiratory Rate 20 Blood Pressure 115/75 Pulse Oximetry 91 Oxygen Delivery Room Air 07/18/24 04:00 07/18/24 00:00 07/18/24 02:00 Temperature 98.2 F Pulse Rate 100 100 95 Respiratory Rate 18 Blood Pressure 112/75 Pulse Oximetry 90 Oxygen Delivery 07/18/24 04:00 07/18/24 05:19 07/18/24 04:00 Temperature Pulse Rate 84 90 Respiratory Rate Blood Pressure Pulse Oximetry Oxygen Delivery Room Air 07/18/24 06:00 07/18/24 06:10 07/18/24 06:00 Temperature Pulse Rate 88 100 96 Respiratory Rate Blood Pressure 112/76 112/68 Pulse Oximetry Oxygen Delivery 07/17/24 20:00 07/17/24 22:00 07/18/24 00:00 Temperature Pulse Rate 133 H 127 H 108 H Respiratory Rate Blood Pressure 113/75 Pulse Oximetry Oxygen Delivery 07/18/24 02:00 07/18/24 04:00 07/18/24 08:00 Temperature 97.9 F Pulse Rate 103 H 91 101 H Respiratory Rate 24 H Blood Pressure 108/69 147/96 H Pulse Oximetry 93 Oxygen Delivery 07/18/24 08:35 07/18/24 08:39 07/18/24 10:00 Temperature 97.7 F Pulse Rate 117 H 96 78 Respiratory Rate 20 Blood Pressure 126
[2024-07-18] MEDS: IRON SUCROSE COMPLEX 200 MG in SODIUM CHLORIDE 0.9% IV 100 ML 220 MG IVPB (14:20)
[2024-07-18] MEDS: FAMOTIDINE 20 MG TABLET PO (14:21)
[2024-07-18] MEDS: cefTRIAXone 2 GM/NS 100 ML 2 GM/100 ML BAG IVPB (20:21)
[2024-07-18] MEDS: TAMSULOSIN HCL 0.4 MG CAPSULE PO (20:26)
[2024-07-18] MEDS: traZODone HCL 50 MG TABLET PO (20:26)
[2024-07-18] MEDS: ALPRAZolam (*CRX) 0.25 MG TABLET PO (23:54)
[2024-07-19] VITALS (12 sets, daily range): BP systolic 115–148; BP diastolic 62–90; PULSE 68–107; RESP 18–20; TEMP 36.6; O2SAT 92–96
[2024-07-19 02:52] LABS: Basophils Percent Auto 0.4 % (0.2-1.2); Eosinophils Absolute Auto 0.3 K/mm3 (0-0.3); Eosinophils Percent Auto 3.8 % (0-4.4); Hematocrit 24.1 % (42.0-52.0); Hemoglobin 7.4 g/dL (14.0-18.0); Immature Granulocyte Absolute 0.05 K/mm3 (0.00-0.031); Immature Granulocyte Percent A 0.7 % (0-0.5); Lymphocytes Absolute Auto 1.08 K/mm3 (0.9-3.2); Lymphocytes Percent Auto 14.3 % (18.3-44.2); Mean Corpuscular HGB Conc 30.7 g/dl (32-36); Mean Corpuscular Hemoglobin 26.8 pg (26-34); Mean Corpuscular Volume 87.3 fl (80-100); Mean Platelet Volume 9.8 fl (7.4-10.4); Monocytes Percent Auto 13.5 % (2.6-8.5); Neutrophils Absolute Auto 5.1 K/mm3 (1.3-6.7); Neutrophils Percent Auto 67.3 % (45.5-73.1); Nucleated Red Blood Cells Perc 0.4 % (0.0-0.2); Platelet Count Result 176 k/mm3 (150-375); Red Blood Count 2.76 M/mm3 (4.6-6.20); Red Cell Distribution Width 18.6 % (11.5-14.5); White Blood Count 7.6 K/mm3 (4.5-10.0)
[2024-07-19 03:13] LABS: Alanine Aminotransferase 6 U/L (6-50); Albumin Level 3.1 g/dL (3.5-5.1); Alkaline Phosphatase 94 U/L (38-126); Anion Gap 7 mmol/L (4-12); Aspartate Amino Transferase 12 U/L (17-59); Bilirubin,Total 0.6 mg/dL (0.2-1.3); Blood Urea Nitrogen 28 mg/dL (9-20); Calcium 8.1 mg/dL (8.4-10.2); Carbon Dioxide 20 mmol/L (22-30); Chloride 108 mmol/L (98-107); Estimated CRCL calculation 39 ml/min; Estimated Glomerular Filt Rate 40; Glucose 103 mg/dL (65-110); Magnesium 1.7 mg/dL (1.6-2.3); Potassium 3.2 mmol/L (3.4-5.0); Sodium 135 mmol/L (137-145)
[2024-07-19] MEDS: metroNIDAZOLE 500 MG/ISO 100ML 500 MG/100 ML BAG 100 MG IVPB (05:35)
[2024-07-19] MEDS: DOXYCYCLINE 100 MG/NS 100 ML 100 MG/100 ML BAG IVPB (09:03)
[2024-07-19] MEDS: METOPROLOL SUCCINATE EXT REL 100 MG TABCR PO (09:03)
[2024-07-19] MEDS: allopurinoL 50 MG TABLET PO (09:03)
[2024-07-19] MEDS: DIGOXIN TAB 125 MCG TABLET PO (09:04)
[2024-07-19] MEDS: FERROUS SULFATE 325 MG TABLET DR BY MOUTH (09:04)
[2024-07-19] MEDS: FOLIC ACID 1 MG TABLET PO (09:04)
[2024-07-19] MEDS: PANTOPRAZOLE 40 MG TABLET PO (09:04)
[2024-07-19] MEDS: ATORVASTATIN 40 MG TABLET 80 MG PO (09:04)
[2024-07-19] MEDS: THIAMINE HCL 50 MG TABLET PO (09:04)
[2024-07-19] MEDS: NICOTINE (*PBKC) 21 MG PATCH 1 PATCH TRANSDERM (10:00)
[2024-07-19 10:18] LABS: Basophils Absolute Auto 0.1 K/mm3 (0.0-0.1); Basophils Percent Auto 0.7 % (0.2-1.2); Eosinophils Absolute Auto 0.2 K/mm3 (0-0.3); Eosinophils Percent Auto 3.3 % (0-4.4); Hematocrit 24.5 % (42.0-52.0); Hemoglobin 7.5 g/dL (14.0-18.0); Immature Granulocyte Absolute 0.05 K/mm3 (0.00-0.031); Immature Granulocyte Percent A 0.7 % (0-0.5); Lymphocytes Absolute Auto 0.87 K/mm3 (0.9-3.2); Lymphocytes Percent Auto 12.1 % (18.3-44.2); Mean Corpuscular HGB Conc 30.6 g/dl (32-36); Mean Corpuscular Hemoglobin 27.2 pg (26-34); Mean Corpuscular Volume 88.8 fl (80-100); Mean Platelet Volume 9.7 fl (7.4-10.4); Monocytes Absolute Auto 0.8 K/mm3 (0.1-0.6); Monocytes Percent Auto 11.4 % (2.6-8.5); Neutrophils Absolute Auto 5.2 K/mm3 (1.3-6.7); Neutrophils Percent Auto 71.8 % (45.5-73.1); Platelet Count Result 183 k/mm3 (150-375); Red Blood Count 2.76 M/mm3 (4.6-6.20); Red Cell Distribution Width 18.8 % (11.5-14.5); White Blood Count 7.2 K/mm3 (4.5-10.0)
--- NOTE | 2024-07-19 10:27 | PM.PNCARD ---
Progress Note: A&P Assessment and Plan (1) Hx of CABG: Code(s): Z95.1 - Presence of aortocoronary bypass graft Status: Acute (2) H/O mitral valve replacement: Code(s): Z95.2 - Presence of prosthetic heart valve Status: Acute (3) Atrial fibrillation: Code(s): I48.91 - Unspecified atrial fibrillation Status: Acute Plan 69-year-old man with chronic atrial fibrillation, previous mitral valve replacement for treatment of severe MR caused by endocarditis and incidental 2 vessel CABG at the time of his mitral valve operation. He entered the hospital profoundly anemic and with over anticoagulation. That has improved and his hemoglobin while still low is much more acceptable. He appears to be hemodynamically stable enough for discharge. Metoprolol 100 mg per day is providing adequate heart rate control. I will see him for follow-up in the office and discuss arranging for left atrial appendage occlusion procedure since he is not a safe candidate for anticoagulation. Stevo Liu MD [facility] Subjective Date/time seen: date of vqvpewr70/22/24 10:27 Interval history: follow-up visit in this 69-year-old man with: History of coronary artery disease mitral valve endocarditis and chronic atrial fibrillation. Patient underwent mitral valve replacement and 2 vessel coronary bypass grafting 10 years ago. He enters the hospital with severe GI bleeding in the setting of Coumadin toxicity. He is feeling better INR has normalized and his hemoglobin is still low although acceptable following transfusion. Exam Const: General: comfortable and no acute distress HENMT: Mouth: Yes moist mucous membranes Eyes: Sclera: sclerae normal Neck: Neck: supple Resp: Effort & Inspection: normal respiratory effort Auscultation: clear to auscultation bilaterally Cardio: Rate: regular rate Rhythm: abnormal rhythm irregularly irregular GI: GI Palp: Yes Soft to palpation Auscultation: normal bowel sounds Skin: General skin exam: normal color Neuro: Other: Alert and oriented x3 Extrem: General: normal to inspection Objective Data Vital Signs Vital Signs: Vital Signs - 24 hr 07/18/24 11:38 07/18/24 11:42 07/18/24 11:30 Temperature 36.8 C Pulse Rate 74 80 74 Respiratory Rate 18 Blood Pressure 142/70 H 142/70 H Pulse Oximetry 95 Oxygen Delivery 07/18/24 11:55 07/18/24 12:00 07/18/24 12:55 Temperature 36.7 C 36.8 C Pulse Rate 74 70 Respiratory Rate 17 24 H Blood Pressure 134/73 110/56 L Pulse Oximetry 95 95 Oxygen Delivery Room Air 07/18/24 12:00 07/18/24 14:00 07/18/24 13:55 Temperature 36.7 C Pulse Rate 83 74 79 Respiratory Rate 28 H Blood Pressure 140/77 Pulse Oximetry 92 Oxygen Delivery 07/18/24 14:22 07/18/24 16:00 07/18/24 16:00 Temperature 36.1 C L 36.9 C Pulse Rate 84 77 Respiratory Rate 20 20 Blood Pressure 120/65 130/73 Pulse Oximetry 94 90 Oxygen Delivery Room Air 07/18/24 16:00 07/18/24 18:00 07/18/24 20:35 Temperature 37.1 C Pulse Rate 73 79 84 Respiratory Rate 20 Blood Pressure 137/60 Pulse Oximetry 94 Oxygen Delivery 07/18/24 20:00 07/18/24 20:00 07/18/24 22:00 Temperature Pulse Rate 79 76 Respiratory Rate Blood Pressure Pulse Oximetry Oxygen Delivery Room Air 07/18/24 23:32 07/19/24 00:00 07/19/24 00:00 Temperature 36.4 C Pulse Rate 76 81 Respiratory Rate 20 Blood Pressure 107/55 L Pulse Oximetry 96 Oxygen Delivery Room Air 07/19/24 02:00 07/19/24 04:00 07/19/24 04:00 Temperature Pulse Rate 74 74 Respiratory Rate Blood Pressure Pulse Oximetry Oxygen Delivery Room Air 07/19/24 05:00 07/19/24 06:00 07/19/24 09:03 Temperature 36.6 C Pulse Rate 87 83 99 Respiratory Rate 20 Blood Pressure 148/83 H Pulse Oximetry 96 Oxygen Delivery 07/19/24 09:04 07/19/24 08:00 Temperature 36.6 C Pulse Rate 101 H
[2024-07-19] MEDS: KCL 20 MEQ/SW 100 ML 100 ML 50 MEQ IVPB (10:32)
[2024-07-19] MEDS: MAGNESIUM SULF 2 GM/WATER 50ML 2 GM/50 ML BAG IVPB (10:32)
[2024-07-19] MEDS: POTASSIUM CHLORIDE 20 MEQ PACKET (FOR LIQUID) 40 MEQ PO (10:32)
[2024-07-19] MEDS: IRON SUCROSE COMPLEX 400 MG, IRON SUCROSE COMPLEX 100 MG in SODIUM CHLORIDE 0.9% IV 250 ML 78.57 MG IVPB (10:40)
--- NOTE | 2024-07-19 13:39 | PM.DS ---
DS: Admitting Diagnosis Discharge Date 07/19/24 Admitting Diagnosis Melena stool DS: Discharge Diagnosis Discharge Diagnosis (1) Pneumonia: Code(s): J18.9 - Pneumonia, unspecified organism Status: Acute (2) Coumadin toxicity: Code(s): T45.511A - Poisoning by anticoagulants, accidental (unintentional), initial encounter Status: Acute (3) Symptomatic anemia: Code(s): D64.9 - Anemia, unspecified Status: Acute (4) GI (gastrointestinal bleed): Code(s): K92.2 - Gastrointestinal hemorrhage, unspecified Status: Acute (5) Anemia: Code(s): D64.9 - Anemia, unspecified Status: Acute DS: Summary Hospital Course Hospital Course: This is a 69-year-old male with past medical history significant PEG for gout, hypertension, dyslipidemia, atrial fibrillation, GERD, benign prostatic hyperplasia, mitral valve replacement. Patient presents to the emergency room due to having melena this has been ongoing for the last 3 months or so. Patient also having fatigue, dizziness, shortness of breath, palpitations, weight loss. Chest x-ray showed mild bilateral lung lobes opacities. Hemoglobin 4..6, patient received 2 units of pRBC. INR was 11.1 and also received Vit K. , GI was consulted patient underwent EGD no bleeding or ulcers noted. Patient was monitored and hb remained stable and wnl, Hb today 7.5. Cardiology was consulted and recommended discontinuing anticoagulation and patient will be evaluated outpatient for watchman device. Urology was consulted for scrotal swelling however it is an inguinal mass for cih he has been referred to higher level of care by his PCP for expert care. patient will continue f/u there. Also managed for Pneumonia and discharged on 5 more days of Levaquin and flagyl. Since patient had melena stool for about 3 months, he was given 1g of IV iron. Warfarin, Iron tablets discontinued Since blood pressure was wnl, Amlodipine is held until follow up with PCP who will determine if patietn can resume F/u with PCP in 3-5 days F/u with cardiology, GI and urology as instructed Also followup with already scheduled follow up the higher level of care hospital. Assessment and Plan (1) Scrotal mass: Code(s): N50.89 - Other specified disorders of the male genital organs Status: Acute Assessment and Plan: 10.4 cm fat containing mass of right inguinal canal and scrotum consistent with hernia versus liposarcoma. Patient was evaluated by urologic and they noted condition is not a urologic issue patient will continue outpatient follow up (already working on it with his PCP) (2) GI (gastrointestinal bleed): Code(s): K92.2 - Gastrointestinal hemorrhage, unspecified Status: Acute Assessment and Plan: From supratherapeutic INR s/p EGD and no findings noted INR is normal Anticoagulation discontinued, for watchman device eval by cardiology medical education coordinator consulted F/u with GI as instructed (3) Atrial fibrillation: Code(s): I48.91 - Unspecified atrial fibrillation Status: Acute Assessment and Plan: Patient on Digoxin at home with warfarin Now rate controlled cardiology recommended discontinued anticoagulation and will evaluate for watchman device continue Digoxin and Metoprolol (4) Coumadin toxicity: Code(s): T45.511A - Poisoning by anticoagulants, accidental (unintentional), initial encounter Status: Acute Assessment and Plan: INR 11.1 on admission now on 1.2 no AC, for watchman device (5) Symptomatic anemia: Code(s): D64.9 - Anemia, unspecified Status: Acute Assessment and Plan: received 1 unit pRBC received 1000mg iron sucrose monitor H and H Hb 7.5 today Iron replete and no supplementation at this time (6) Pneumonia: Code(s): J18.9 - Pneumonia, unspecified organism Status: Acute Assessment and Plan: CXR showe
== END 2024-07-19 15:30 | disposition home or self-care (01) | DRG 377 ==
LOC: ANHED 12:45 → ANHIMU 14:52
PROVIDERS: Internal Medicine Gastroenterology; Student in an Organized Health Care Education/Training Program; Admitting Provider Family Medicine; Emergency Provider Student in an Organized Health Care Education/Training Program; PCP Nurse Practitioner Family; Visit Provider Internal Medicine
PROC: 0DJ08ZZ Inspection of Upper Intestinal Tract, Via Natural or Artificial Opening Endoscopic (ICD-10-PCS; CPT 43235; principal; 2024-07-17 15:30)
DX: K92.1 Melena (principal); J18.9 Pneumonia, unspecified organism; D50.9 Iron deficiency anemia, unspecified; E78.5 Hyperlipidemia, unspecified; F17.210 Nicotine dependence, cigarettes, uncomplicated; I48.91 Unspecified atrial fibrillation; I10 Essential (primary) hypertension; K21.9 Gastro-esophageal reflux disease without esophagitis; M10.9 Gout, unspecified; N40.0 Benign prostatic hyperplasia without lower urinary tract symptoms; N50.89 Other specified disorders of the male genital organs; Z79.01 Long term (current) use of anticoagulants; Z20.822 Contact with and (suspected) exposure to COVID-19; R79.1 Abnormal coagulation profile; Z95.2 Presence of prosthetic heart valve; Z95.1 Presence of aortocoronary bypass graft
CPT/HCPCS: 36415; 36430; 71045; 74177; 80053; 83605; 83735; 83880; 84484; 85014; 85018; 85025; 85027; 85380; 85610; 85730; 86850; 86900; 86901; 86923; 87040; 87635; 87641; 93005; 96365; 96368; 96375; 99285; A9270; J0696; J1756; J1836; J1940; J2470; J2704; J3430; J3475; J3480; J7030; J7050; J7120; J7168; P9016; Q9967

== ENCOUNTER 2024-07-20 21:56 | Inpatient (IN) | payer MEDICARE, SELFPAY ==
--- NOTE | ~2024-07-20 | XR_ITS ---
EXAMINATION: XR chest 1V portable DATE: 07/20/2024 22:26 INDICATION: Shortness of breath and worsening weakness TECHNIQUE: frontal view of the chest was obtained. COMPARISON: Chest radiograph dated 07/17/2024 FINDINGS: New small right pleural effusion. Prior pulmonary edema has improved. Airspace opacities in the right lower lung zone which could represent atelectasis or pneumonia. No pneumothorax or left-sided pleura l effusion. Heart size is normal. Median sternotomy wires and mitral valve repair. IMPRESSION: 1. Small right pleural effusion with associated atelectasis and/or pneumonia in the right lower lung zone. Reviewed, dictated and finalized at location A.
[2024-07-20 21:59] VITALS: BP 147/83; PULSE 67; RESP 16; O2SAT 100
--- NOTE | 2024-07-20 21:59 | ECG_ITS ---
Test Date: 2024-07-20 22:11:12 Measurements Intervals [place] Rate: 62 P: 0 NV: 0 QRS: -55 QRSD: 120 T: 6 QT: 426 QTc: 433 Interpretive Statements ATRIAL FIBRILLATION LEFT ANTERIOR FASCICULAR BLOCK BORDERLINE ST ABNORMALITY- HIGH LATERAL LEADS ABNORMAL ECG Compared to ECG 07/17/2024 16:25:16 HEART RATE HAS DECREASED Electronically Signed On 07-21-2024 06:25:34 CDT by Catarino Pradhan D.O.
[2024-07-20 22:16] LABS: Basophils Percent Auto 0.6 % (0.2-1.2); Eosinophils Absolute Auto 0.2 K/mm3 (0-0.3); Eosinophils Percent Auto 2.5 % (0-4.4); Hematocrit 25.7 % (42.0-52.0); Hemoglobin 7.7 g/dL (14.0-18.0); Immature Granulocyte Absolute 0.04 K/mm3 (0.00-0.031); Immature Granulocyte Percent A 0.6 % (0-0.5); Lymphocytes Absolute Auto 0.86 K/mm3 (0.9-3.2); Lymphocytes Percent Auto 12.9 % (18.3-44.2); Mean Corpuscular Volume 90.2 fl (80-100); Mean Platelet Volume 9.7 fl (7.4-10.4); Monocytes Absolute Auto 0.8 K/mm3 (0.1-0.6); Monocytes Percent Auto 11.5 % (2.6-8.5); Neutrophils Absolute Auto 4.8 K/mm3 (1.3-6.7); Neutrophils Percent Auto 71.9 % (45.5-73.1); Platelet Count Result 216 k/mm3 (150-375); Red Blood Count 2.85 M/mm3 (4.6-6.20); Red Cell Distribution Width 20.1 % (11.5-14.5); White Blood Count 6.7 K/mm3 (4.5-10.0)
[2024-07-20 22:29] LABS: Alanine Aminotransferase 8 U/L (6-50); Albumin Level 3.3 g/dL (3.5-5.1); Alkaline Phosphatase 94 U/L (38-126); Anion Gap 10 mmol/L (4-12); Aspartate Amino Transferase 11 U/L (17-59); Bilirubin,Total 0.8 mg/dL (0.2-1.3); Blood Urea Nitrogen 19 mg/dL (9-20); Calcium 8.6 mg/dL (8.4-10.2); Carbon Dioxide 18 mmol/L (22-30); Chloride 105 mmol/L (98-107); Estimated CRCL calculation 45 ml/min; Estimated Glomerular Filt Rate 47; Glucose 112 mg/dL (65-110); Potassium 3.5 mmol/L (3.4-5.0); Sodium 133 mmol/L (137-145)
[2024-07-20 22:37] LABS: NT Pro B Type Natriuretic Pept 12200 pg/mL (19.9-100)
[2024-07-20 22:51] LABS: INR 1.4; Partial Thromboplastin Time 34.9 Seconds (22.3-36.8); Prothrombin Time 17.9 Seconds (11.1-14.7)
[2024-07-20 22:53] LABS: Influenza A QL RT-PCR Negative (Negative); Influenza B QL RT-PCR Negative (Negative); SARS-CoV-2 RNA PCR Negative (Negative)
[2024-07-20 23:29] VITALS: BP 152/79; PULSE 57; RESP 15; O2SAT 96
--- NOTE | 2024-07-20 23:38 | PM.IMHP ---
H&P: HPI History of Present Illness Date/Time: 07/20/24 23:38 Chief Complaint: generalized weakness Narrative: This is a 69-year-old male with past medical history significant for congestive heart failure, bioprosthetic mitral valve, benign prostatic hyperplasia, GI bleed. Patient recently admitted to [facility] after being found to be anemic patient received blood transfusion and underwent endoscopy with no acute findings believed to be secondary to Coumadin. Patient returns due to generalized malaise, shortness of breath with mild activity, patient denies any fevers, rigors, chills, no melena, no hematemesis, no coffee-ground emesis, no bright red blood per rectum, no cough, no sputum production, has had poor appetite, poor per orally intake weight loss. preliminary workup was significant for chest x-ray with infiltrate, brain natriuretic peptide was 12,200, hemoglobin was 7.7, creatinine 1.5. Patient tested negative for COVID influenza type A and influenza type B. patient has been admitted for further evaluation management and treatment. EXAMINATION: XR chest 1V portable DATE: 07/20/2024 22:26 INDICATION: Shortness of breath and worsening weakness TECHNIQUE: frontal view of the chest was obtained. COMPARISON: Chest radiograph dated 07/17/2024 FINDINGS: New small right pleural effusion. Prior pulmonary edema has improved. Airspace opacities in the right lower lung zone which could represent atelectasis or pneumonia. No pneumothorax or left-sided pleural effusion. Heart size is normal. Median sternotomy wires and mitral valve repair. IMPRESSION: 1. Small right pleural effusion with associated atelectasis and/or pneumonia in the right lower lung zone. Review of Systems Review of Systems: generalized weakness, poor per orally intake, poor appetite, weight loss PMFSH Past Medical History Medical History BPH (benign prostatic hyperplasia) Coumadin toxicity Symptomatic anemia Surgical History Surgical History H/O mitral valve replacement 2013 Family History Family History Father Heart problem Cerebrovascular accident Mother Alzheimer dementia Social History Social History Smoking packs per day: 0.5 Smoking cigarettes per day: 10.0 Years smoked: 53 Smoking pack-years: 26.50 Smoking status: Current every day smoker Tobacco type: cigarettes Alcohol intake: former Drinks per week: 5 Substance use: never Substance use type: does not use Do You Feel Safe in your Home?: Yes Lack of Transportation: No Lack of Food: Never True Current Housing: I Have Housing Concerned About Future Housing: No Difficulty Paying Gas/Electric Bills: No Difficulty Paying for Meds: No Currently Unemployed: No Education: High School Diploma/GED Difficulty w/ Childcare or Family Care: No Spiritual care concerns: No Meds Home Medications and Allergies Home Medications Medication Instructions Recorded Confirmed Type atorvastatin 80 mg tablet 80 mg PO DAILY 04/29/24 07/20/24 History digoxin 125 mcg (0.125 mg) tablet 125 mcg PO DAILY #90 tabs 04/29/24 07/20/24 Rx folic acid 1 mg tablet 1 mg PO DAILY 04/29/24 07/20/24 History metoprolol succinate 100 mg 100 mg PO DAILY #90 tabs 04/29/24 07/20/24 Rx tablet,extended release 24 hr spironolactone 25 mg tablet 25 mg PO DAILY 04/29/24 07/20/24 History tamsulosin 0.4 mg capsule 0.4 mg PO QHS #90 caps 04/29/24 07/20/24 Rx thiamine HCl (vitamin B1) 100 mg 50 mg PO DAILY 04/29/24 07/20/24 History tablet allopurinol 100 mg tablet 50 mg PO DAILY #90 tabs 06/03/24 07/20/24 Rx hydroxyzine HCl 50 mg tablet 50 mg PO QID PRN itching #120 tabs 06/03/24 07/20/24 Rx pantoprazole 40 mg tablet,delayed 40 mg PO QAM #9
--- NOTE | 2024-07-20 23:41 | ED.GENADULT ---
HPI - General Adult General Chief complaint: Shortness of Breath/Dyspnea Stated complaint: sob with exertion Time Seen by Provider: 07/20/24 21:59 History of Present Illness HPI narrative: Patient is a 69-year-old male who presents to the emergency department this evening complaining of a shortness of breath which is worse with exertion. Patient also complains of generalized weakness and feeling fatigued. He states that he has no energy. Patient was recently admitted and discharged from this facility for a low hemoglobin and concern for GI bleed. Patient is on Eliquis and had an elevated INR requiring reversal with Kcentra and vitamin K. He was seen by Cardiology, GI and was transfused 2 units of packed RBCs. Patient has a history of a atrial fibrillation and bioprosthetic mitral valve replacement. Patient is currently denying any chest pain, denies any nausea or vomiting, any abdominal pain and denies any fevers or chills. No additional symptoms or concerns at this time. Related Data Home Medications Medication Instructions Recorded Confirmed atorvastatin 80 mg tablet 80 mg PO DAILY 04/29/24 07/16/24 folic acid 1 mg tablet 1 mg PO DAILY 04/29/24 07/16/24 spironolactone 25 mg tablet 25 mg PO DAILY 04/29/24 07/16/24 thiamine HCl (vitamin B1) 100 mg 50 mg PO DAILY 04/29/24 07/16/24 tablet Allergies Allergy/AdvReac Type Severity Reaction Status Date / Time No Known Allergies Allergy Verified 07/20/24 23:46 Review of Systems Review of Systems: All systems are reviewed and are negative unless stated otherwise in the HPI. FOR[facility]LY [facility] Past Medical History Medical History BPH (benign prostatic hyperplasia) Coumadin toxicity Symptomatic anemia Surgical History Surgical History H/O mitral valve replacement 2013 Family History Family History Father Heart problem Cerebrovascular accident Mother Alzheimer dementia Social History Social History Smoking packs per day: 0.5 Smoking cigarettes per day: 10.0 Years smoked: 53 Smoking pack-years: 26.50 Smoking status: Current every day smoker Tobacco type: cigarettes Alcohol intake: former Drinks per week: 5 Substance use: never Substance use type: does not use Do You Feel Safe in your Home?: Yes Lack of Transportation: No Lack of Food: Never True Current Housing: I Have Housing Concerned About Future Housing: No Difficulty Paying Gas/Electric Bills: No Difficulty Paying for Meds: No Currently Unemployed: No Education: High School Diploma/GED Difficulty w/ Childcare or Family Care: No Spiritual care concerns: No Exam Narrative: General: Alert, awake, afebrile, in no acute distress. HEENT: PERRL, no rhinorrhea, no post nasal drip, oropharynx clear. Cardiovascular: Regular rate and rhythm, no murmurs, rubs or gallops, no peripheral edema. Respiratory: Clear to auscultation bilaterally, no tachypnea, no wheezing, no rhonchi, no rubs, no respiratory distress. Abdomen: Soft, nontender, nondistended, no rebound, no guarding, no peritoneal signs. Musculoskeletal: No joint swelling or deformity, normal muscle tone. Skin: No rashes or petechia, no signs of infection. Neurological: Alert and oriented to person, place, and time. Follows all commands. No focal deficits, speech is clear and fluent. Course Vital Signs Vital signs: Vital Signs Pulse Rate 67 07/20/24 21:59 Respiratory Rate 16 07/20/24 21:59 Blood Pressure 147/83 H 07/20/24 21:59 Pulse Oximetry 100 07/20/24 21:59 Oxygen Delivery Room Air 07/20/24 21:59 Pulse Rate 57 L 07/20/24 23:29 Respiratory Rate 15 07/20/24 23:29 Blood Pressure 152/79 H 07/20/24 23:29 Pulse Oximetry 96 07/20/24 23:29 Oxygen Delivery
[2024-07-20] MEDS: FUROSEMIDE INJ 40 MG/4 ML VIAL IV PUSH (23:57)
[2024-07-20] MEDS: AZITHROMYCIN 500 MG/NS 250 ML 500 MG/250 ML BAG 250 MG IVPB (23:57)
[2024-07-21] VITALS (18 sets, daily range): BP systolic 119–141; BP diastolic 51–76; PULSE 55–105; RESP 15–28; TEMP 36.3–36.9; O2SAT 91–100; BMI 21.7
--- NOTE | 2024-07-21 | ECHO_ITS ---
Patient Info Name: Reese Terrell Age: 69 years : 1955 Gender: Male Ht: 72 in Wt: 164 lbs BSA: 1.94 m2 HR: 72 bpm BP: 119 / 76 mmHg Heart Rhythm: Atrial Fibrillation Technical Quality: Fair Exam Date: 07/21/2024 7:45 AM Exam Location: Echo Lab Patient Status: Inpatient Admit Date: 07/20/2024 Staff Ordering Physician: Bart Benton MD X Ray Consultant: Mariana Bobo RDCS Attending Provider: Bart Benton MD Referring Physician: Serenity WALLACE; Exam Type: CA echo dop color flow w con Study Info Indications - CHF Complete two-dimensional, color flow and Doppler transthoracic echocardiogram is performed with contrast to opacify the left ventricle and to improve the deliniation of the left ventricle endocardial borders. Contrast/Agitated Saline Contrast/Ag. Saline: Definity Amount: 3.00 ml Administered By: Mariana Bobo RDCS Existing IV Access: Yes IV Access Condition: patent with no signs of infiltration Summary 1. Left ventricular chamber dimension is normal. 2. Left ventricular systolic function is mildly reduced, estimated at 45-50%. 3. There is moderately increased left ventricular wall thickness. 4. Right ventricular systolic function is normal. 5. Left atrial chamber dimension is severely enlarged. 6. Right atrial chamber dimension is mildly enlarged. 7. There is mild aortic valve regurgitation. 8. Known history of bioprosthetic mitral valve replacement, which appears to be calcified. Moderate-severe stenosis of the bioprosthetic mitral valve with mean gradient of 11mmHg and valve area of 1.12cm2. 9. There is mild tricuspid valve regurgitation. 10. Pulmonary hypertension, estimated pulmonary arterial systolic pressure is 54 mmHg. Left Ventricle Left ventricular chamber dimension is normal. Left ventricular systolic function is mildly reduced, estimated at 45-50%. There is moderately increased left ventricular wall thickness. Left ventricular septal wall motion is abnormal with septal motion related to a post-operative state. The left ventricular diastolic function is indeterminate. Right Ventricle Right ventricular chamber dimension is normal. Right ventricular systolic function is normal. Left Atria Left atrial chamber dimension is severely enlarged. Right Atria Right atrial chamber dimension is mildly enlarged. Atrial Septum Intact interatrial septum visualized by color flow imaging. Aortic Valve The aortic valve is not well visualized. There is no aortic valve stenosis. There is mild aortic valve regurgitation. Pulmonic Valve The pulmonic valve is not well visualized. There is trace pulmonic regurgitation. Mitral Valve Known history of bioprosthetic mitral valve replacement, which appears to be calcified. Moderate-severe stenosis of the bioprosthetic mitral valve with mean gradient of 11mmHg and valve area of 1.12cm2. There is no mitral valve regurgitation. Tricuspid Valve There is mild tricuspid valve regurgitation. Pulmonary hypertension, estimated pulmonary arterial systolic pressure is 54 mmHg. Pericardium/Pleural There is no pericardial effusion. Inferior Vena Cava Dilated inferior vena cava with <50% collapse upon inspiration consistent with elevated right atrial pressure, 15 mmHg. Aorta The aortic root size at the sinus of Valsalva is normal. Left Ventricular Outflow Tract Name Value Normal
[2024-07-21 00:34] LABS: Lactic Acid Reflex 0.9 mmol/L (0.7-2.0)
--- NOTE | 2024-07-21 01:00 | ADMGEN ---
This patient, Reese Terrell, was admitted to IMU Room 211-01. Patient/family oriented to hospital policies and general routines including ID bracelet, bed and alarms, visiting hours, pain management, procedures, bathroom and other care routines, personal items, smoking policy, room service/diet, and visiting hours. Information on how to activate the Rapid Response Team has been discussed. Patient/Family are encouraged to report perceived risks to care and to ask questions if they do not understand what they are told or what they should do.
[2024-07-21] MEDS: VANCOMYCIN 1,750 MG/NS 500 ML 1,750 MG/500 ML BAG 250 MG IVPB (01:26)
[2024-07-21 06:33] LABS: MRSA (PCR) NOT DETECTED (NOT DETECTE)
[2024-07-21] MEDS: FOLIC ACID 1 MG TABLET PO (08:30)
[2024-07-21] MEDS: DIGOXIN TAB 125 MCG TABLET PO (08:30)
[2024-07-21] MEDS: AMOXICILLIN/CLAVULANATE K 875-125 MG TAB 1 TABLET PO ×2 (08:31→20:30)
[2024-07-21] MEDS: SPIRONOLACTONE 25 MG TABLET PO (08:31)
[2024-07-21] MEDS: PANTOPRAZOLE 40 MG TABLET PO (08:31)
[2024-07-21] MEDS: allopurinoL 50 MG TABLET PO (08:31)
[2024-07-21] MEDS: METOPROLOL SUCCINATE EXT REL 100 MG TABCR PO (08:31)
[2024-07-21] MEDS: THIAMINE HCL 50 MG TABLET PO (08:31)
[2024-07-21] MEDS: AZITHROMYCIN 250 MG TABLET 500 MG PO (08:31)
[2024-07-21] MEDS: PERFLUTREN LIPID MICROSPHERES 1.5 ML VIAL DILUTED TO 10 ML TOTAL VOLUME IV PUSH (08:45)
--- NOTE | 2024-07-21 09:07 | IVDEFINITY ---
Prior to administration of IV Definity the patient was educated on the risks and benefits of the imaging enhancing agent including potential adverse side effects. The patient verbalized understanding. Allergies were verified. No exclusion criteria were identified and at least one of the following inclusion criteria were met: 1) physician request, 2) patient technically difficult to image (per the [place] [employer] guidelines of two or more segments not discernable within the apical view), or 3) questionable left ventricular function. ?
--- NOTE | 2024-07-21 09:25 | PM.IMPN ---
Progress Note: A&P Assessment and Plan (1) HAP (hospital-acquired pneumonia): Code(s): J18.9 - Pneumonia, unspecified organism; Y95 - Nosocomial condition Status: Acute (2) CHF (congestive heart failure): Code(s): I50.9 - Heart failure, unspecified Status: Acute (3) Anemia: Code(s): D64.9 - Anemia, unspecified Status: Acute (4) H/O mitral valve replacement: Code(s): Z95.2 - Presence of prosthetic heart valve Status: Acute (5) Atrial fibrillation: Code(s): I48.91 - Unspecified atrial fibrillation Status: Acute (6) Hypertension: Code(s): I10 - Essential (primary) hypertension Status: Acute Plan this is a 69-year-old male who presents to the ED with complaint of shortness of breath which is worse with exertion. Associated generalized weakness and fatigue. He was recently in for anemia with concern of GI bleed. Patient was on warfarin and had at elevated INR requiring reversal with Kcentra and vitamin K. He was seen by Cardiology and GI during her admission. Was transfused 2 unit of packed red blood cells. History of atrial fibrillation and bioprosthetic mitral valve replacement. In ED his vitals were stable EKG showed atrial fibrillation with a rate of 62 beats per minute with no evidence of acute ischemia. Laboratory evaluation revealed hemoglobin of 7.7 which is stable compared to the discharge level. BNP was 95487 which is up trended from 8420 on 07/16. Chest x-ray showed small right pleural effusion with associated atelectasis and/or pneumonia right lower lung zone. He was treated for right lower lobe pneumonia and his recent admission as well and was discharged on Levaquin and Flagyl. Blood culture were obtained. No hypoxia noted With elevated BNP suspect congestive heart failure related. Will cover with antibiotics and continue to follow the trend. Also give Lasix 40 mg IV daily Influenza RSV COVID swab was negative. Echocardiogram has been ordered. 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 Endoscopy with no new findings. Atrial fibrillation Plan for outpatient Watchman device coronary disease status post CABG Hypertension History of gout inguinal mass 10.4 cm fat containing mass in right inguinal kennel and scrotum consistent with hernia versus liposarcoma. need outpatient follow-up CKD stage 3 DVT prophylaxis SCDs Code status full code Subjective Date/time seen: 07/21/24 09:25 Interval history: chart reviewed. Presented with shortness of breath. Remains on room air. Labs reviewed. Discussed with nursing staff. Eager to go home Review of Systems Review of Systems: All systems reviewed & are unremarkable except as noted in HPI and below Exam Narrative: General: Alert, awake, afebrile, in no acute distress. HEENT: PERRL, no rhinorrhea, no post nasal drip, oropharynx clear. Cardiovascular: Regular rate and rhythm, no murmurs, rubs or gallops, no peripheral edema. Respiratory: Clear to auscultation bilaterally, no tachypnea, no wheezing, no rhonchi, no rubs, no respiratory distress. Abdomen: Soft, nontender, nondistended, no rebound, no guarding, no peritoneal signs. Musculoskeletal: No joint swelling or deformity, normal muscle tone. Skin: No rashes or petechia, no signs of infection. Neurological: Alert and oriented to person, place, and time. Follows all commands. No focal deficits, speech is clear and fluent. Objective Data Vital Signs Vital Signs: Vital Signs - 24 hr 07/20/24 21:59 07/20/24 23:29 07/20/24 23:29 Temperature Pulse Rate 67 57 L Respiratory Rate 16 15 Blood Pressure 147/83 H 152/79 H Pulse Oximetry 100 96 96 Oxygen Delivery Room Air Room Air 07/21/24 00:19 07/21/24 00:45
[2024-07-21 10:06] LABS: Basophils Percent Auto 0.4 % (0.2-1.2); Eosinophils Absolute Auto 0.2 K/mm3 (0-0.3); Eosinophils Percent Auto 3.4 % (0-4.4); Hematocrit 24.3 % (42.0-52.0); Hemoglobin 7.3 g/dL (14.0-18.0); Immature Granulocyte Absolute 0.05 K/mm3 (0.00-0.031); Immature Granulocyte Percent A 0.7 % (0-0.5); Lymphocytes Absolute Auto 0.86 K/mm3 (0.9-3.2); Lymphocytes Percent Auto 12.8 % (18.3-44.2); Mean Corpuscular Hemoglobin 26.9 pg (26-34); Mean Corpuscular Volume 89.7 fl (80-100); Mean Platelet Volume 10.3 fl (7.4-10.4); Monocytes Absolute Auto 0.8 K/mm3 (0.1-0.6); Monocytes Percent Auto 12.3 % (2.6-8.5); Neutrophils Absolute Auto 4.7 K/mm3 (1.3-6.7); Neutrophils Percent Auto 70.4 % (45.5-73.1); Nucleated Red Blood Cells Perc 0.3 % (0.0-0.2); Platelet Count Result 221 k/mm3 (150-375); Red Blood Count 2.71 M/mm3 (4.6-6.20); Red Cell Distribution Width 19.8 % (11.5-14.5); White Blood Count 6.7 K/mm3 (4.5-10.0)
[2024-07-21 10:38] LABS: Alanine Aminotransferase 6 U/L (6-50); Albumin Level 3.1 g/dL (3.5-5.1); Alkaline Phosphatase 82 U/L (38-126); Anion Gap 6 mmol/L (4-12); Aspartate Amino Transferase 10 U/L (17-59); Bilirubin,Total 0.7 mg/dL (0.2-1.3); Blood Urea Nitrogen 19 mg/dL (9-20); Calcium 8.4 mg/dL (8.4-10.2); Carbon Dioxide 22 mmol/L (22-30); Chloride 100 mmol/L (98-107); Estimated CRCL calculation 39 ml/min; Estimated Glomerular Filt Rate 40; Glucose 120 mg/dL (65-110); Magnesium 1.7 mg/dL (1.6-2.3); Potassium 3.5 mmol/L (3.4-5.0); Sodium 128 mmol/L (137-145)
--- NOTE | 2024-07-21 15:03 | PM.CNCAR ---
Assessment and Plan Assessment and plan (1) CHF (congestive heart failure): Code(s): I50.9 - Heart failure, unspecified Status: Acute Assessment and Plan: Secondary to mitral disease and probably some iatrogenic heart failure due to recent blood transfusions and IV fluid intake. He has received one dose of IV furosemide. He still has JVD and rales on physical exam so I am going to give him one dose of IV furosemide now. I suspect he will be stable for discharge tomorrow on p.o. furosemide and I will send a referral to the valve clinic at [place] for management of his mitral disease. (2) Exertional dyspnea: Code(s): R06.09 - Other forms of dyspnea Status: Acute Assessment and Plan: As above. (3) Atrial fibrillation: Code(s): I48.91 - Unspecified atrial fibrillation Status: Acute Assessment and Plan: He is rate controlled. Not on anticoagulation because of recent bleeding requiring transfusions. He will be referred for LAAO device as an outpatient. 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 He was recently hospitalized because of anemia as a result of supratherapeutic INR. During that hospital stay he was given 2 units of blood as well as IV fluids. He was not diuresed. He comes back to the hospital after less than 24 hours at home because ofdyspnea with exertion. He states this was not a problem that developed when he got home rather he did not recognize it in the hospital because he wasn't ambulating much. Echocardiogram was performed and revealed moderate to severe stenosis of his bio mitral valve, whereas in December of this year he had mild to moderate stenosis by echo. He states he feels short of breath still but not like he was at home because he mostly lays in bed in the hospital. No lower extremity swelling, orthopnea, chest pain, palpitations, syncope. Review of Systems Review of Systems: All systems reviewed & are unremarkable except as noted in HPI and below PMFSH Past Medical History Medical History BPH (benign prostatic hyperplasia) Coumadin toxicity Symptomatic anemia Surgical History Surgical History H/O mitral valve replacement 2013 Family History Family History Father Heart problem Cerebrovascular accident Mother Alzheimer dementia Social History Social History Smoking packs per day: 0.5 Smoking cigarettes per day: 10.0 Years smoked: 53 Smoking pack-years: 26.50 Smoking status: Current every day smoker Tobacco type: cigarettes Alcohol intake: former Drinks per week: 5 Substance use: never Substance use type: does not use Do You Feel Safe in your Home?: Yes Lack of Transportation: No Lack of Food: Never True Current Housing: I Have Housing Concerned About Future Housing: No Difficulty Paying Gas/Electric Bills: No Difficulty Paying for Meds: No Currently Unemployed: No Education: High School Diploma/GED Difficulty w/ Childcare or Family Care: No Spiritual care concerns: No Meds Home Medications and Allergies Home Medications Medication Instructions Recorded Confirmed Type atorvastatin 80 mg tablet 80 mg PO DAILY 04/29/24 07/20/24 History digoxin 125 mcg (0.125 mg) tablet 125 mcg PO DAILY #90 tabs 04/29/24 07/20/24 Rx folic acid 1 mg tablet 1 mg PO DAILY 04/29/24 07/20/24 History metop
[2024-07-21] MEDS: FUROSEMIDE INJ 40 MG/4 ML VIAL IV PUSH (15:12)
[2024-07-21] MEDS: NICOTINE (*PBKC) 21 MG PATCH 1 PATCH TRANSDERM (15:12)
[2024-07-21] MEDS: MIRTAZAPINE 30 MG TABLET PO (20:30)
[2024-07-21] MEDS: TAMSULOSIN HCL 0.4 MG CAPSULE PO (20:30)
[2024-07-21] MEDS: traZODone HCL 50 MG TABLET PO (20:34)
[2024-07-22] VITALS: BP 156/66; PULSE 62; RESP 20; TEMP 36.9; O2SAT 96
[2024-07-22 04:00] VITALS: PULSE 77
[2024-07-22 04:09] LABS: Basophils Percent Auto 0.7 % (0.2-1.2); Eosinophils Percent Auto 4.6 % (0-4.4); Hematocrit 27.7 % (42.0-52.0); Hemoglobin 8.1 g/dL (14.0-18.0); Immature Granulocyte Percent A 0.7 % (0-0.5); Lymphocytes Percent Auto 16.1 % (18.3-44.2); Mean Corpuscular HGB Conc 29.2 g/dl (32-36); Mean Corpuscular Hemoglobin 26.1 pg (26-34); Mean Corpuscular Volume 89.4 fl (80-100); Mean Platelet Volume 9.6 fl (7.4-10.4); Monocytes Percent Auto 11.7 % (2.6-8.5); Neutrophils Percent Auto 66.2 % (45.5-73.1); Platelet Count Result 224 k/mm3 (150-375); Red Cell Distribution Width 20.1 % (11.5-14.5); White Blood Count 7.2 K/mm3 (4.5-10.0)
[2024-07-22 04:10] LABS: Basophils Absolute Auto 0.1 K/mm3 (0.0-0.1); Eosinophils Absolute Auto 0.3 K/mm3 (0-0.3); Immature Granulocyte Absolute 0.05 K/mm3 (0.00-0.031); Lymphocytes Absolute Auto 1.15 K/mm3 (0.9-3.2); Monocytes Absolute Auto 0.8 K/mm3 (0.1-0.6); Neutrophils Absolute Auto 4.7 K/mm3 (1.3-6.7)
[2024-07-22] MEDS: traZODone HCL 50 MG TABLET 100 MG PO (04:28)
[2024-07-22 04:32] LABS: Alanine Aminotransferase 6 U/L (6-50); Albumin Level 3.5 g/dL (3.5-5.1); Alkaline Phosphatase 97 U/L (38-126); Anion Gap 10 mmol/L (4-12); Aspartate Amino Transferase 11 U/L (17-59); Bilirubin,Total 0.6 mg/dL (0.2-1.3); Blood Urea Nitrogen 18 mg/dL (9-20); Calcium 8.7 mg/dL (8.4-10.2); Carbon Dioxide 20 mmol/L (22-30); Chloride 103 mmol/L (98-107); Estimated CRCL calculation 37 ml/min; Estimated Glomerular Filt Rate 38; Glucose 115 mg/dL (65-110); Magnesium 1.6 mg/dL (1.6-2.3); Potassium 3.4 mmol/L (3.4-5.0); Sodium 133 mmol/L (137-145)
[2024-07-22 04:35] LABS: Digoxin 0.6 ng/mL (0.8-2.0); Platelet Estimate Adequate (Adequate)
[2024-07-22 04:36] LABS: Anisocytosis 2+; Hypochromasia 1+; Ovalocytes 1+; Schistocytes None Seen
[2024-07-22 08:00] VITALS: BP 127/66; PULSE 64; PULSE 76; RESP 20; TEMP 37.2; O2SAT 94
[2024-07-22] MEDS: MAGNESIUM SULF 2 GM/WATER 50ML 2 GM/50 ML BAG IVPB (09:14)
[2024-07-22 09:15] VITALS: PULSE 78
[2024-07-22] MEDS: POTASSIUM CHLORIDE 20 MEQ ER TABLET 40 MEQ PO (09:15)
[2024-07-22] MEDS: METOPROLOL SUCCINATE EXT REL 100 MG TABCR PO (09:15)
[2024-07-22] MEDS: AZITHROMYCIN 250 MG TABLET 500 MG PO (09:15)
[2024-07-22] MEDS: AMOXICILLIN/CLAVULANATE K 875-125 MG TAB 1 TABLET PO (09:15)
[2024-07-22 09:16] VITALS: PULSE 78
[2024-07-22] MEDS: THIAMINE HCL 50 MG TABLET PO (09:16)
[2024-07-22] MEDS: NICOTINE (*PBKC) 21 MG PATCH 1 PATCH TRANSDERM (09:16)
[2024-07-22] MEDS: DIGOXIN TAB 125 MCG TABLET PO (09:16)
[2024-07-22] MEDS: PANTOPRAZOLE 40 MG TABLET PO (09:16)
[2024-07-22] MEDS: SPIRONOLACTONE 25 MG TABLET PO (09:16)
[2024-07-22] MEDS: FOLIC ACID 1 MG TABLET PO (09:16)
[2024-07-22] MEDS: allopurinoL 50 MG TABLET PO (09:16)
[2024-07-22 12:00] VITALS: PULSE 68
--- NOTE | 2024-07-22 12:42 | PM.PNCARD ---
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 Has diuresed well, recommend Lasix 40mg once daily. Continue Toprol. Continue Spironolactone. (2) H/O mitral valve replacement: Code(s): Z95.2 - Presence of prosthetic heart valve Status: Acute Assessment and Plan: Echocardiogram here shows concern for significant bioprosthetic mitral valve stenosis with mean gradient of 11mmHg. Echocardiogram report from December 2023 from [place] showed mild-moderate stenosis of the bioprosthetic valve. He has not seen a ring spinner in a long time per the patient. Will get him referred to the [facility] at [place]. (3) Atrial fibrillation: Code(s): I48.91 - Unspecified atrial fibrillation Status: Acute Assessment and Plan: Continue Toprol. Continue Digoxin. Not on anticoagulation due to recent bleeding requiring transfusions. (4) Hypertension: Code(s): I10 - Essential (primary) hypertension Status: Acute Assessment and Plan: Stable. Continue Toprol, Spironolactone (5) Hyperlipidemia: Code(s): E78.5 - Hyperlipidemia, unspecified Status: Acute Assessment and Plan: Continue home Atorvastatin. Plan Okay for discharge from my standpoint. Will get him referred to the [facility] at [place]. Recommendations and plan discussed with Hospitalist. 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 He was recently hospitalized because of anemia as a result of supratherapeutic INR. During that hospital stay he was given 2 units of blood as well as IV fluids. He was not diuresed. He comes back to the hospital after less than 24 hours at home because of dyspnea with exertion. He states this was not a problem that developed when he got home rather he did not recognize it in the hospital because he wasn't ambulating much. Echocardiogram was performed and revealed moderate to severe stenosis of his bio mitral valve, whereas in December of this year he had mild to moderate stenosis by echo. He states he feels short of breath still but not like he was at home because he mostly lays in bed in the hospital. No lower extremity swelling, orthopnea, chest pain, palpitations, syncope. Date of service 07/22: Feeling okay. Tele with rate controlled AFIB. Review of Systems Review of Systems: All systems reviewed & are unremarkable except as noted in HPI and below (HPI) Exam Const: General: comfortable and no acute distress Eyes: General: appearance normal, both eyes and all related structures Sclera: sclerae normal Resp: Effort & Inspection: normal respiratory effort Cardio: Rhythm: abnormal rhythm irregularly irregular Skin: General skin exam: normal color Neuro: Speech: normal speech Psych: Mental Status: mental status grossly normal Affect: normal affect Objective Data Vital Signs Vital Signs: Vital Signs - 24 hr 07/21/24 14:00 07/21/24 15:24 07/21/24 15:38 Temperature 36.6 C Pulse Rate 56 L 75 Respiratory Rate 24 H Blood Pressure 119/63 Pulse Oximetry 96 Oxygen Delivery Room Air 07/21/24 15:49 07/21/24 16:00 07/21/24 20:50 Temperature 36.4 C Pulse Rate 63 60 Respiratory Rate 20 Blood Pressure 141/66 H Pulse Oximetry 98 Oxygen Delivery Room Air 07/21/24 20:00 07/22/24 00:00 07/22/24 00:00 Temperature 36.9 C Pulse Rate 61 62 62 Respiratory Rate 20 Blood Pressure 156/66 H Pulse Oximetry 96
--- NOTE | 2024-07-22 14:07 | PM.DS ---
DS: Admitting Diagnosis Discharge Date 07/22/24 Admitting Diagnosis Generalized weakness DS: Discharge Diagnosis Discharge Diagnosis (1) HAP (hospital-acquired pneumonia): Code(s): J18.9 - Pneumonia, unspecified organism; Y95 - Nosocomial condition Status: Acute (2) CHF (congestive heart failure): Code(s): I50.9 - Heart failure, unspecified Status: Acute (3) Anemia: Code(s): D64.9 - Anemia, unspecified Status: Acute (4) H/O mitral valve replacement: Code(s): Z95.2 - Presence of prosthetic heart valve Status: Acute (5) Atrial fibrillation: Code(s): I48.91 - Unspecified atrial fibrillation Status: Acute (6) Hypertension: Code(s): I10 - Essential (primary) hypertension Status: Acute DS: Summary Hospital Course Reason for hospitalization: 69yo male with CHF, bioprosthetic mitral valve, benign prostatic hyperplasia, and recent GI bleed here for weakness. Patient recently admitted to [facility] after being found to be anemic and received blood transfusion. He underwent endoscopy with no acute findings; anemia believed to be secondary to Coumadin. Coumadin on hold. Please see H&P for details. Hospital Course: Patient returned about 24 hours later for generalized weakness. Hgb was low but stable. Creatinine was elevated 1.5-1.8 range but similar to last admission. MRSA nasal swab negative. Digoxin level 0.6. influenza and COVID PCR negative. CXR showing a small right pleural effusion with associated RLL airspace disease felt to be PNA. WBC normal and remained normal. IV Abx started but quickly moved to oral route (he was discharged last admission on abx). EKG showing AFib with LAFB and borderline ST changes in high lateral leads. Echo showing EF 45-50%, LAE>>FRANTZ, moderate to severe bioprosthetic mitral stenosis and pulmonary HTN (54mmHg). He was treated with IV diurectics with good response. Cardiology consulted and recommended patient be seen at [facility]. He overall did well and was able to be discharged home on 07/22/24. Status at Discharge Cognitive/behavioral status at discharge: stable Time Spent with Patient Time attestation: Total time spent providing and/or coordinating discharge services: 35 minutes Time spent: Greater than 30 minutes Exam Narrative: AF 99.0 127/66 68 20 94% ra Gen - NARD Chest - L>R bibasilar crackles, nml RR CV - irregularly irregular, Tele showing AFib with controlled rate and PVCs Abd - Soft, NT/ND, Positive BS Ext - No pedal edema. left forearm firm linear cord without erythema c/w phlebitis Psych - Nml mood and affect Skin - Warm and dry DS: Data Data Completed and Pending Labs on day of discharge: Labs from last 24 hours 07/22/24 04:01 WBC 7.2 RBC 3.10 L Hgb 8.1 L Hct 27.7 L MCV 89.4 MCH 26.1 MCHC 29.2 L RDW 20.1 H Plt Count 224 MPV 9.6 Immature Gran % (Auto) 0.7 H Neut % (Auto) 66.2 Lymph % (Auto) 16.1 L [place] % (Auto) 11.7 H Eos % (Auto) 4.6 H Baso % (Auto) 0.7 Lymph # (Auto) 1.15 [place] # (Auto) 0.8 H Eos # (Auto) 0.3 Baso # (Auto) 0.1 Abs Immat Gran (auto) 0.05 H Absolute Neuts (auto) 4.7 Absolute Nucleated RBC 0.000 Nucleated RBC % 0.0 Platelet Estimate Adequate Hypochromasia 1+ Anisocytosis 2+ Ovalocytes 1+ Schistocytes None seen Sodium 133 L Potassium 3.4 Chloride 103 Carbon Dioxide 20 L Anion Gap 10 BUN 18 Creatinine 1.80 H Estim Creat Clear Calc 37 Estimated GFR 38 L Glucose 115 H Calcium 8.7 Magnesium 1.6 Total Bilirubin 0.6 AST 11 L ALT 6 Alkaline Phosphatase 97 Total Protein 6.0 L Albumin 3.5 Digoxin 0.6 L Preliminary micro results at discharge 07/21/24 00:15 Blood Culture - Preliminary Blood 07/21/24 00:15 Blood Culture - Preliminary Blood Discharge Plan Discharge Attending physician on discharge: Holden Garcia Consulting providers: Jose Carlos Galvez
== END 2024-07-22 15:20 | disposition home or self-care (01) | DRG 193 ==
LOC: ANHED 23:41 → ANHIMU 07-21 00:01
PROVIDERS: Internal Medicine; Admitting Provider Internal Medicine; Emergency Provider Emergency Medicine; PCP Nurse Practitioner Family; Visit Provider Internal Medicine
DX: J18.9 Pneumonia, unspecified organism (principal); I50.23 Acute on chronic systolic (congestive) heart failure; I13.0 Hypertensive heart and chronic kidney disease with heart failure and stage 1 through stage 4 chronic kidney disease, or unspecified chronic kidney disease; Y95 Nosocomial condition; T45.515A Adverse effect of anticoagulants, initial encounter; D64.9 Anemia, unspecified; E78.5 Hyperlipidemia, unspecified; F17.210 Nicotine dependence, cigarettes, uncomplicated; I48.91 Unspecified atrial fibrillation; I25.10 Atherosclerotic heart disease of native coronary artery without angina pectoris; M10.9 Gout, unspecified; N18.30 Chronic kidney disease, stage 3 unspecified; N40.0 Benign prostatic hyperplasia without lower urinary tract symptoms; Z95.2 Presence of prosthetic heart valve; Z79.01 Long term (current) use of anticoagulants; Z20.822 Contact with and (suspected) exposure to COVID-19; Z86.79 Personal history of other diseases of the circulatory system; Z95.1 Presence of aortocoronary bypass graft
CPT/HCPCS: 36415; 71045; 80053; 80162; 83605; 83735; 83880; 85025; 85610; 85730; 86850; 86900; 86901; 87040; 87636; 87641; 93005; 96365; 97161; 97165; 99285; A9270; C8929; J0456; J0692; J0696; J1940; J3370; J3475; Q9957

== ENCOUNTER 2024-12-01 12:33 | Outpatient (CLI) | payer MEDICARE, SELFPAY ==
--- OUTSIDE RECORDS SUMMARY | 2024-12-01 12:39 | XMS_ITS | Clinical Summary ---
Author Organization [facility] Facility Address [address] [facility] [address] [address] Care Team Providers Care Auto Body Man Name Role Phone Unavailable Primary Care Provider Unavailabl e Social History Tobacco Use Types Packs/Day Years Used Date Smoking Tobacco: Never Assessed Sex and Gender Information Value Date Recorded Sex Assigned at Not on file Legal Sex Male 2:49 PM EDT Gender Identity Not on file Sexual Orientation Not on file Plan of Treatment Health Maintenance Due Date Last Done Comments Colorectal Cancer Screening: Annual FOBT 2005 Colorectal Cancer Screening: Colonoscopy 2005 Colorectal Cancer Screening: Sigmoidoscopy 2005 Pneumococcal Vaccine: 65+ Ye ars (1 of 1 - PCV) 2021 Influenza Vaccine (#1) 2024 Hepatitis B Vaccine Aged Out No longe r eligible based on patient's age to complete this topic Insurance [employer] MED[employer]ARE
--- OUTSIDE RECORDS SUMMARY | 2024-12-01 12:39 | XMS_ITS | CONTINUITY OF CARE DOCUMENT ---
Author Name isela weiss Address Unknown Organization [facility] Address [id number] [place] [address] [address] [place] [address] Phone [phone] Care Team Providers Care Conditioning Room Worker Name Role Phone Galileo Vivas MD Unavailable [employer]INE[employer]-C, MICAH Unavailable [phone] [employer]INE[employer]-C, MICAH Unavailable PROBLEMS Condition Status Date Provider Notes Cardiomyopathy;EF 40% BY NELIA 15, active Galileo Vivas MD MITRAL REGURGITATION, MODERATE;12 completed - Galileo Vivas MD TOBACCO ABUSE active Galileo Vivas MD AORTIC REGURGITATION, MODERATE;12 completed - Galileo Vivas MD TRICUSPID REGURGITATION, MILD;PAP35 2011 completed - Galileo Vivas MD AORTIC ROOT DILITATION;4.3 2011 completed - Galileo Vivas MD HTN CONTROLLED;LABS PER PRIMARY,NEG ANGIO, MEDS ADJUSTED active Galileo Vivas MD HYPERTRIGLYCERIDEMIA;RX PER PRIMARY completed - Galileo Vivas MD Family History of CVA or Stroke: completed - Galileo Vivas MD Family History of Sudden Cardiac : completed - Galileo Vivas MD Atrial fib paroxysmal completed - Galileo Vivas MD CABG;SVG X 2 active Galileo Vivas MD CAD active Galileo Vivas MD MVR - tissue valve;FOR SBE, FU NELIA NEG 15 active Lisbeth Olivier RN HX OF Atrial fib;CARDIOVERSION 2014,WAS BRIEFLY ON AMIO active Galileo Vivas MD Left atrial enlargement active Galileo do MD R/O Renal artery stenosis;NE G ANGIO completed - Galileo Vivas MD Hypercholesterolemia;ON RX active Lisbeth Maldonado RN Granulomatous lung disease active Galileo clark MD ENCOUNTERS Date Type Provider Location Encounter Diag nosis - In-person encounter Office Visit Galileo Vivas MD [facility] Cardiomyopathy;EF 40 % BY NELIA 15,HTN CONTROLLED;LABS PER PRIMARY,NEG ANGIO, MEDS ADJUSTEDHX OF Atrial fib;CARDIOVERSION 2014,WAS BRIEFLY ON AMIOR/O Renal artery stenosis;NEG ANGIOGranulomatous lung disease - In-person encounter Office Visit Bj Barney MD [facility] - In-person encounter Office Visit Galileo Vivas MD [facility] Cardiomyopathy;EF 40 % BY NELIA 15,MITRAL REGURGITATION, MODERATE;12AORTIC REGURGITATION, MODERATE;12TRICUSPID REGURGITATION, MILD;PAP35 2012AORTIC ROOT DILITATION;4.3 2012HYPERTRIGLYCERIDEMIA; RX PER PRIMARYFamily History of CVA or Stroke:Family History of Sudden Cardiac :Atrial fib paroxysmalCABG;SVG X 2CADMVR - tissue valve;FOR SBE, FU NELIA NEG 15HX OF Atrial fib;CARDIOVERSION 2014,WAS BRIEFLY ON AMIOLeft atrial enlargementHypercholester olemia;ON RX - In-person encounter Office Visit Ryley Dubose MD [facility] - In-person encounter Office Visit Galileo Vivas MD [facility] Cardiomyopathy;EF 40% BY NELIA 15,TOBACCO ABUSEHTN CONTROLLED;LABS PER PRIMARY,NEG ANGIO, MEDS ADJUSTED VITAL SIGNS Date Observation Value Provider Body Mass Index (Ratio) 24.17 kg/m2 Melo Shah blood pressure, diastolic 102 mm[Hg] Yazan Shah blood pressure, systolic 140 mm[Hg] Dima Shah pulse rate 98 /min Latrice Shah oxygen saturation, oximetry 97 % Latrice Shah respiratory rate E&M 20 /min Latrice Shah weight E&M 178.2 [lb_av] Latrice Shah Body Mass Index (Ratio) 24.00 kg/m2 Eugene ibarra BLue blood pressure, diastolic 110 mm[Hg] Ni mii BLue blood pressure, systolic 180 mm[Hg] Jordan johnson BLue pulse rate 93 /min Estela Ania oxygen saturation, oximetry 98 % Estela Jorge respiratory rate E&M 18 /min Estela Jane weight E&M 177 [lb_av] Estela Jorge Body Mass Index (Ratio) 23.46 kg/m2 Melo Shah blood pressure, diastolic 90 mm[Hg] Yazan Shah blood pressure, systolic 120 mm[Hg] Dima Shah pulse rate 18 /min Latrice Shah oxygen saturation, oximetry 98 % Latrice Shah respiratory rate E&M 74 /min Latrice Shah weight E&M 173 [lb_av] Latrice Shah Body Mass Index (Ratio) 23.05 kg/m2 Hilary Longoria blood pressure, diastolic 99 mm[Hg] Lamine Longoria blood pressure, systolic 149 mm[Hg] Mani Longoria pulse rate 81 /min Anastacia Longoria oxygen saturation, oximetry 97 % Anastacia Longoria respiratory rate E&M 16 /min Anastacia Longoria weight E&M 170 [lb_av] Anastacia Longoria height E&M 72 [in_i] Anastacia Longoria blood pressure, diastolic, left arm 87 mm [Hg] Leroy Guzman RN blood pressure, systolic, left arm 140 mm [Hg] Leroy Guillaumemartina MEJIA blood pressure, diastolic, right arm 84 m m[Hg] Leroy Guillaumemartina MEJIA blood pressure, systolic, right arm 136 m m[Hg] Leroy Guillaumemartina MEJIA blood pressure, diastolic 87 mm[Hg] Kwame savannah Guillaumemartina MEJIA blood pressure, systolic 140 mm[Hg] Leroy Guillaumemartina MEJIA pulse rate 80 /min Leroy Guillaumemartina MEJIA oxygen saturation, oximetry 97 % Leroy Guillaumemartina MEJIA respiratory rate E&M 16 /min Leroy Amy carias RN weight E&M 196 [lb_av] Leroy Guzman RN ALLERGIES No Known Drug Allergies HISTORY OF MEDICATION USE Medication Status Instructions Dates Provider Indications Com ments ALDACTAZIDE 25-25 MG ORAL TABLET active ONE TAB DAILY Galileo Vivas MD ASPIRIN 81 MG ORAL TABLET active ONE TAB. DAILY Galileo Vivas MD COZAAR 50 MG ORAL TABLET active ONE TAB. DAILY Bj Barney MD EQL STOOL SOFTENER 100 MG ORAL CAPSULE active TAKE NEEDED Latrice Shah CARVEDILOL 12.5 MG ORAL TABLET active one tab twice a day Bj Barney MD PRADAXA 150 MG ORAL CAPSULE completed One capsule twice a day. TAKE WITH LARGE GLASS OF WATER! - Latrice Shah Atrial fib paroxysmal AMIODARONE HCL 400 MG ORAL TABLET completed ONE TAB. twice DAILY - Galileo Vivas MD Atrial fib paroxysmal ATORVASTATIN CALCIUM 20 MG ORAL TABLET active 1 tab daily Bj Barney MD PERCOCET TABLET completed as needed - Latrice Shah KLOR-CON M20 20 MEQ ORAL TABLET EXTENDED RELEASE completed 1 tab daily - Latrice Shah LASIX 20 MG ORAL TABLET completed 1 tab daily - Latrice Shah ASPIRIN 325 MG ORAL TABLET completed 1 tab daily - Latrice Shah PRILOSEC 20 MG ORAL CAPSULE DELAYED RELEASE active ONE TAB. DAILY Leroy Guzman RN VITAMIN B COMPLEX completed one tab daily - Latrice Pablo MULTIVITAMINS ORAL CAPSULE completed ONE TAB. DAILY - Latrice Millerdney FISH OIL CAPSULE completed twice daily - Anastacia Longoria CIALIS 10 MG ORAL TABLET completed ONE TAB DAILY PRN - Anastacia Longoria LISINOPRIL 10 MG ORAL TABLET completed ONE TAB. DAILY - Anastacia Longoria BUPROPION HCL TABS completed sr 50mg twice daily - Anastacia Longoria SOCIAL HISTORY Date Observation Value Provider smoking history, tot al pack/year 48 Lisbeth Olivier RN smoking/tobacco cess ation, patient education and counseling yes Galileo Vivas MD social history reviewed E&M rosalee ewed - no changes required Galileo Vivas MD social history reviewed E&M rosalee law - no changes required Bj Barney MD social history E&M Marital Statu s: Unknown or other L susy with family/friends E thnicity: P atmike currently smokes every day. A lcohol Use - yes Smoking History: P atmike currently smokes every day. P atmike has been counseled to quit. Bj Barney MD physical exercise, frequency, days per week no Bj Barney MD alcohol use, average drinks per day 1-3 drinks per day Bj Barney MD caffeine use, averag e drinks per day yes Bj Barney MD smoking/tobacco cess ation, patient education and counseling yes Bj Barney MD number of years as a smoker 10 years or m ore Bj Barney MD smoking, date started 1970 Bj Barney MD smoking history, tot al pack/day 20 Bj Barney MD cigarette use yes Bj Evans smoking status current every day smoker U nona Barney MD social history reviewed E&M revi ewed - no changes required Galileo Vivas MD smoking/tobacco cess ation, patient education and counseling yes Galileo Vivas MD smoking, date started 1970 Anastacia Longoria smoking history, tot al pack/day 20 Anastacia Von cigarette use yes Anastacia Von smoking status Current every day smoker T samantha Von smoking/tobacco cess ation, patient education and counseling yes Leroy Guzman RN social history E&M Marital Statu s: Unknown or other L susy with family/friends E thnicity: Leroy Guzman RN social history reviewed E&M reviewed Leroy Guzman RN physical exercise, frequency, days per week no [facility] caffeine use, averag e drinks per day yes [facility] alcohol use, average drinks per day 1-3 drinks per [facility] number of years as a smoker 10 years or m ore [facility] smoking status Smoker [facility] MENTAL STATUS Date Observation Value Provider assessment of judgme nt and insight E&M Alert and oriented to time, place and person. Mood and affect are normal. Leroy Guzman RN FAMILY HISTORY Family Member Condition Full Sister Family History of Co ronary Artery Disease: Father Family History of Leonardo dden Cardiac : Father Family History of Co ronary Artery Disease: Father Family History of CV A or Stroke: INSURANCE PROVIDERS Payer name Policy type / Coverage type [facility] [employer] [place] MEDICA[employer] Medicaid [id number] TREATMENT PLAN Date Name Performer F/U: O rders: V ITAMIN B12 (927) C BC (H/H, RBC, INDICES, WBC, PLT) (1759) H EMOGLOBIN A1c (496) V ITAMIN D, 25-HYDROXY, LC/MS/MS (81941) Galileo Vivas MD F/U: O rders: C omplete Echo (CPT-83262) C arotid Duplex Bilateral (CPT-22031) F ull PFT (*) T HYROID PANEL WITH TSH, 3RD GENERATION (7444) B TYPE NATRIURETIC PEPTIDE (BNP) (50073) COMPREHENSIVE METABOLIC PANEL W/EGFR (87678) L IPID PANEL (7600) H olter Monitor 24 Hr (CPT-16762) V ITAMIN B12 (927) C BC (H/H, RBC, INDICES, WBC, PLT) (1759) H EMOGLOBIN A1c (496) V ITAMIN D, 25-HYDROXY, LC/MS/MS (21771) Galileo Vivas MD F/U: H is updated medication list for this problem includes: Aldactazide 25-25 Mg Tabs (Spironolactone-hctz) ..... One tab daily Aspirin 81 Mg Tabs (Aspirin) ..... One tab. daily Chlorthalidone 25 Mg Tabs (Chlorthalidone) ..... One tab. daily Cozaar 50 Mg Tabs (Losartan potassium) ..... One tab. daily Carvedilol 12.5 Mg Tabs (Carvedilol) ..... One tab twice a day & #13;Orders: C omplete Echo (CPT-34457) C arotid Duplex Bilateral (CPT-88755) F ull PFT (*) T HYROID PANEL WITH TSH, 3RD GENERATION (7444) B TYPE NATRIURETIC PEPTIDE (BNP) (73691) C OMPREHENSIVE METABOLIC PANEL W/EGFR (36628) L IPID PANEL (7600) H olter Monitor 24 Hr (CPT-87828) V ITAMIN B12 (927) C BC (H/H, RBC, INDICES, WBC, PLT) (1759) H EMOGLOBIN A1c (496) V ITAMIN D, 25-HYDROXY, LC/MS/MS (22385) Galileo Vivas MD F/U Bj Barney MD F/U Galileo Vivas MD F/U: T he following medications were removed from the medication list: Aspirin 325 Mg Oral Tabs (Aspirin) ..... 1 tab daily Lasix 20 Mg Oral Tabs (Furosemide) ..... 1 tab daily His updated medication list for this problem includes: Cozaar 25 Mg Tabs (Losartan potassium) ..... One tab. daily Carvedilol 6.25 Mg Oral Tabs (Carvedilol) ..... Once daily Galileo Vivas MD ep initial visit Ryley sharma MD ep initial visit:s/p valve surge ry Ryley Dubose MD ep initial visit:recommmend NELIA/ cardioloversion Ryley Dubose MD consult for heart mu rmur : O rders: C omplete Echo (CPT-40613) X -Ray, Chest, PA & Lateral (CPT-90045) S tress Test - Routine (CPT-79029) Galileo Vivas MD consult for heart mu rmur : O rders: S tress Test - Routine (CPT-44551) Galileo Vivas MD consult for heart mu rmur : H is updated medication list for this problem includes: Lisinopril 10 Mg Tabs (Lisinopril) ..... One tab. daily Orders: C omplete Echo (CPT-61060) X -Ray, Chest, PA & Lateral (CPT-01453) Galileo Vivas MD consult for heart mu rmur : H is updated medication list for this problem includes: Lisinopril 10 Mg Tabs (Lisinopril) ..... One tab. daily Orders: C omplete Echo (CPT-17749) X -Ray, Chest, PA & Lateral (CPT-06406) Galileo Vivas MD consult for heart mu rmur : O rders: C omplete Echo (CPT-64056) X -Ray, Chest, PA & Lateral (CPT-51760) Galileo Vivas MD consult for heart mu rmur : H is updated medication list for this problem includes: Lisinopril 10 Mg Tabs (Lisinopril) ..... One tab. daily Orders: C omplete Echo (CPT-56589) X -Ray, Chest, PA & Lateral (CPT-05253) Galileo Vivas MD consult for heart mu rmur : H is updated medication list for this problem includes: Lisinopril 10 Mg Tabs (Lisinopril) ..... One tab. daily Aspirin 81 Mg Tabs (Aspirin) ..... One tab. daily BP today: 140/87 Orders: C omplete Echo (CPT-11692) X -Ray, Chest, PA & Lateral (CPT-03882) Galileo Vivas MD consult for heart mu rmur : H is updated medication list for this problem includes: Lisinopril 10 Mg Tabs (Lisinopril) ..... One tab. daily Aspirin 81 Mg Tabs (Aspirin) ..... One tab. daily BP today: 140/87 Prior BP: / () Galileo Vivas MD Date Name DLCO Order - [id number] FRC Order - [id number] FVC Order - [id number] IRON AND TOTAL IRON BINDING CAPACITY FOLATE, SERUM VITAMIN D, 25-HYDROX Y, LC/MS/MS HEMOGLOBIN A1c CBC (H/H, RBC, INDIC ES, WBC, PLT) VITAMIN B12 Holter Monitor 24 Hr LIPID PANEL COMPREHENSIVE METABO LIC PANEL W/EGFR B TYPE NATRIURETIC P EPTIDE (BNP) THYROID PANEL WITH T SH, 3RD GENERATION Full PFT Carotid Duplex Bilat eral Complete Echo Full PFT THYROID PANEL WITH T SH, 3RD GENERATION B TYPE NATRIURETIC P EPTIDE (BNP) COMPREHENSIVE METABO LIC PANEL W/EGFR Carotid Duplex Bilat eral Complete Echo Spirometry Holter Monitor 24 Hr Cardioversion - GC NELIA - GC Stress Test - Routin e X-Ray, Chest, PA & L ateral Complete Echo HISTORY OF PROCEDURES Procedure Date Procedure Name Provider Procedure Notes S tatus BLOOD COUNT HEMOGLOBIN Galileo Vivas MD completed EKG Galileo Vivas MD complete d ePrescribe - Check t his box if eRx is used Ryley Dubose MD completed EKG Ryley Dubose MD comp leted EKG Galileo Vivas MD complete d
[2024-12-01 13:02] LABS: Hematocrit 35.6 % (42.0-52.0); Hemoglobin 10.6 g/dL (14.0-18.0); Mean Corpuscular HGB Conc 29.8 g/dl (32-36); Mean Platelet Volume 9.4 fl (7.4-10.4); Platelet Count Result 215 k/mm3 (150-375); Red Blood Count 4.81 M/mm3 (4.6-6.20); Red Cell Distribution Width 19.9 % (11.5-14.5); White Blood Count 6.8 K/mm3 (4.5-10.0)
[2024-12-01 14:57] LABS: Iron 42 ug/dL (49-181)
[2024-12-01 15:07] LABS: Percent Iron Saturation 10 % (20-50)
[2024-12-01 16:38] LABS: Alanine Aminotransferase 11 U/L (6-50); Albumin Level 4.3 g/dL (3.5-5.1); Alkaline Phosphatase 153 U/L (38-126); Anion Gap 13 mmol/L (4-12); Aspartate Amino Transferase 18 U/L (17-59); Bilirubin,Total 1.1 mg/dL (0.2-1.3); Blood Urea Nitrogen 23 mg/dL (9-20); Calcium 9.3 mg/dL (8.4-10.2); Carbon Dioxide 23 mmol/L (22-30); Chloride 103 mmol/L (98-107); Estimated Glomerular Filt Rate 43; Glucose 100 mg/dL (65-110); Potassium 4.3 mmol/L (3.4-5.0); Sodium 139 mmol/L (137-145)
== END 2024-12-01 12:34 | disposition home or self-care (01) ==
PROVIDERS: PCP Nurse Practitioner Family; Visit Provider Nurse Practitioner Family
DX: E78.5 Hyperlipidemia, unspecified (principal); I11.9 Hypertensive heart disease without heart failure; I50.9 Heart failure, unspecified; D64.9 Anemia, unspecified; I48.91 Unspecified atrial fibrillation; R73.01 Impaired fasting glucose; M10.9 Gout, unspecified; Z79.01 Long term (current) use of anticoagulants
CPT/HCPCS: 36415; 80053; 83036; 83540; 83550; 84550; 85027

== ENCOUNTER 2024-12-07 12:52 | Outpatient (CLI) | payer MEDICARE, SELFPAY ==
--- NOTE | ~2024-12-07 | US_ITS ---
EXAMINATION: US scrotum doppler DATE: 12/07/2024 13:37 INDICATION: Right testicular swelling and tenderness TECHNIQUE: Testicular sonogram utilizing grayscale and Doppler COMPARISON: CT dated 07/16/2024 FINDINGS: The right testis measures 4.8 x 2.5 x 4.9 cm. The left testis measures 2.9 x 1.6 x 2.8 cm. Symmetric normal grayscale appearance to both testes. Vascular flow with arterial waveforms identified in both testes on color Doppler. There is a large, 11.8 x 7.4 x 11.0 cm hyperechoic mass along side the right testis in the right scrotum without evident internal vascular flow on color Doppler. The bilateral e pididymides are not identified and may be obscured by the large mass at the right hemiscrotum. There is no varicocele or hydrocele. IMPRESSION: 1. 11.8 x 7.4 x 1.0 cm hyperechoic extratesticular mass in the right hemiscrotum which is not signif icantly changed accounting for differences in technique to the heterogeneous macroscopic fat, soft ti ssue and fluid density mass seen in the right scrotum and inguinal canal on CT dated 07/16/24. Would c oncur with previously provided differential of herniated fat, potentially with secondary infarct/necr osis versus liposarcoma. 2. Normal bilateral testes. Reviewed, dictated and finalized at location A. D CARE TEAM LEAD IMPRESSION: 1. 11.8 x 7.4 x 1.0 cm hyperechoic extratesticular mass in the right hemiscrot um which is not significantly changed accounting for differences in technique t o the heterogeneous macroscopic fat, soft tissue and fluid density mass seen in the right scrotum and inguinal canal on CT dated 07/16/24. Would concur with pr eviously provided differential of herniated fat, potentially with secondary inf arct/necrosis versus liposarcoma. 2. Normal bilateral testes.
== END 2024-12-07 12:53 | disposition home or self-care (01) ==
LOC: MICIMG 12:54
PROVIDERS: PCP Nurse Practitioner Family; Visit Provider Surgery
DX: N50.89 Other specified disorders of the male genital organs (principal)
CPT/HCPCS: 76870; 93976